=== PATIENT | female | born 1955 | race Caucasian/White ===

== ENCOUNTER 2021-06-27 19:07 | Inpatient (IN) | payer MEDICARE, OTHER ==
[~2021-06-27] VITALS: Ht 172.7 cm; Wt 61.7 kg
[2021-06-27 20:32] LABS: Basophils # (auto) 0.1 10 ^3/uL (0-0.2); Basophils % (auto) 0.9 % (0.0-2.0); Eosinophils # (auto) 0.3 10 ^3/uL (0-0.8); Eosinophils % (auto) 4.1 % (0.0-7.0); Hematocrit 36.5 % (36.0-46.0); Hemoglobin 12.6 g/dL (12.2-16.2); Lymphocytes # (auto) 1.2 10 ^3/uL (0.4-5.4); Lymphocytes % (auto) 17.7 % (10.0-50.0); Mean Corpuscular Hemoglobin 31.4 pg (28.0-32.0); Mean Corpuscular Hgb Conc. 34.6 g/dL (32.0-36.0); Mean Corpuscular Volume 90.6 fL (80.0-100.0); Monocytes # (auto) 0.7 10 ^3/uL (0-1.3); Monocytes % (auto) 10.5 % (0.0-12.0); Neutrophils # (auto) 4.7 10 ^3/uL (1.6-8.6); Neutrophils % (auto) 66.8 % (37.0-80.0); Red Blood Cells 4.03 10^6/uL (4.0-5.20); Red Cell Distribution Width 13.8 % (11.8-14.3)
[2021-06-27 21:00] LABS: Calcium 9.1 mg/dL (8.5-10.1)
[2021-06-27 21:02] LABS: BUN/Creatinine Ratio 9.8; Bilirubin, Total 0.5 mg/dL (0.2-1.0); Total Protein 5.5 g/dL (6.4-8.2)
[2021-06-27 21:53] LABS: Urine Bacteria NONE SEEN /hpf (None Seen); Urine Blood Negative /uL (Negative); Urine Specific Gravity 1.003 (1.001-1.035); Urine WBC <1 /hpf (0 - 5)
[2021-06-27] MEDS ORDERED: POTASSIUM CHL 20 Meq TABLET PO ONE (22:00)
[2021-06-27] MEDS ORDERED: LORazepam 2MG/ML-1ML VIAL IV ONE (22:30)
[2021-06-27] MEDS ORDERED: levETIRAcetam 500 MG/5ML INJ IV ONE (22:58)
[2021-06-28] MEDS ORDERED: ONDANSETRON HCL 4 MG/2 ML VIAL IV PRN (00:30)
[2021-06-28] MEDS ORDERED: LORazepam 2MG/ML-1ML VIAL IV PRN ×2 (00:30→10:30)
[2021-06-28] MEDS ORDERED: ACETAMINOPHEN 325 MG TAB PO PRN (00:30)
[2021-06-28] MEDS: POTASSIUM CHL 20MEQ/100ML 100 ML IV SCH ×3 (02:07→06:45)
[2021-06-28 04:51] LABS: Alcohol, Urine < 3.0 mg/dL (0-10); Amphetamine Screen, Urine NEGATIVE (NEGATIVE); Barbiturate Scree,Urine NEGATIVE (NEGATIVE); Benzodiazephine Screen, Urine POSITIVE (NEGATIVE); Cannabinoid Screen, Urine NEGATIVE (NEGATIVE); Cocaine Screen, Urine NEGATIVE (NEGATIVE); Opiate Scree,Urine NEGATIVE (NEGATIVE); Phencyclidine Screen, Urine NEGATIVE (NEGATIVE)
[2021-06-28 04:59] LABS: Basophils # (auto) 0.1 10 ^3/uL (0-0.2); Basophils % (auto) 0.7 % (0.0-2.0); Eosinophils # (auto) 0.2 10 ^3/uL (0-0.8); Hematocrit 35.5 % (36.0-46.0); Hemoglobin 12.4 g/dL (12.2-16.2); Lymphocytes # (auto) 1.1 10 ^3/uL (0.4-5.4); Lymphocytes % (auto) 11.6 % (10.0-50.0); Mean Corpuscular Hemoglobin 31.6 pg (28.0-32.0); Mean Corpuscular Hgb Conc. 34.8 g/dL (32.0-36.0); Mean Corpuscular Volume 90.9 fL (80.0-100.0); Monocytes # (auto) 0.8 10 ^3/uL (0-1.3); Monocytes % (auto) 8.4 % (0.0-12.0); Neutrophils # (auto) 7.2 10 ^3/uL (1.6-8.6); Neutrophils % (auto) 77.3 % (37.0-80.0); Red Blood Cells 3.91 10^6/uL (4.0-5.20); Red Cell Distribution Width 13.1 % (11.8-14.3); White Blood Cell 9.3 10^3/uL (4.4-10.8)
[2021-06-28 05:15] VITALS: BP 134/66
[2021-06-28 05:18] LABS: Calcium 8.9 mg/dL (8.5-10.1); Potassium 3.5 mmol/L (3.5-5.1)
[2021-06-28 05:24] LABS: BUN/Creatinine Ratio 5.4; Bilirubin, Total 0.6 mg/dL (0.2-1.0); Total Protein 5.4 g/dL (6.4-8.2)
[2021-06-28] MEDS ORDERED: ATOR40TA52 PO (06:34)
[2021-06-28] MEDS ORDERED: GABA300C10 PO (06:34)
[2021-06-28] MEDS ORDERED: METH750T22 PO (06:34)
[2021-06-28] MEDS ORDERED: ACET300T57 PO (06:34)
[2021-06-28] MEDS ORDERED: TRAZ100T3 PO (06:34)
[2021-06-28] MEDS ORDERED: DULO20CA PO (06:34)
[2021-06-28] MEDS ORDERED: CLOP75TA70 PO (06:34)
[2021-06-28] MEDS ORDERED: LISI2.5T47 PO (06:34)
[2021-06-28] MEDS ORDERED: ALPR1TAB7 PO (06:34)
[2021-06-28] MEDS ORDERED: SUCR1SUS16 PO (06:34)
[2021-06-28] MEDS ORDERED: ONDA-144 PO (06:34)
[2021-06-28] MEDS ORDERED: METO-158 PO (06:34)
[2021-06-28] MEDS ORDERED: MONT-8 PO (06:34)
[2021-06-28] MEDS ORDERED: EZET10TA22 PO (06:34)
[2021-06-28 09:00] VITALS: BP 123/73
[2021-06-28] MEDS ORDERED: ENOXAPARIN SOD 40 MG/0.4 ML SYRINGE SC SCH (10:00)
[2021-06-28] MEDS: FAMOTIDINE 20 MG TAB PO SCH (10:03)
[2021-06-28] MEDS: levETIRAcetam 500 MG TAB PO SCH ×2 (10:03→21:09)
[2021-06-28] MEDS ORDERED: ACETAMINOPHEN WITH CODEINE PO PRN (10:30)
[2021-06-28 11:32] LABS: Folate (Folic Acid) 15.78 ng/mL (5.38-24)
[2021-06-28 13:00] VITALS: BP 137/60
[2021-06-28] MEDS: SUCRALFATE 1 GM/10 ML ORAL SUSP PO SCH ×3 (13:08→21:07)
[2021-06-28] MEDS: MAGNESIUM SULFATE 1GM/100ML 100 ML IV SCH ×4 (13:08→15:00)
[2021-06-28] MEDS: ONDANSETRON ODT 4 MG TAB PO SCH ×3 (13:09→23:19)
[2021-06-28] MEDS: D5W/SOD CHL 0.45%/KCL 40MEQ 1,000 ML IV SCH ×2 (13:30→22:23)
[2021-06-28] MEDS: GABAPENTIN 300 MG CAP PO SCH ×2 (14:00→21:09)
[2021-06-28 15:31] LABS: Albumin 3.1 g/dL (3.4-5.0); Calcium 8.7 mg/dL (8.5-10.1)
[2021-06-28 15:36] LABS: BUN/Creatinine Ratio 5.4; Bilirubin, Total 0.8 mg/dL (0.2-1.0); Total Protein 5.7 g/dL (6.4-8.2)
[2021-06-28 15:41] LABS: Potassium 2.9 mmol/L (3.5-5.1)
[2021-06-28] MEDS: METOPROLOL TARTRATE 50 MG TAB PO SCH (17:00)
[2021-06-28] MEDS ORDERED: POTASSIUM CHL 20 Meq TABLET PO ONE (18:00)
[2021-06-28] MEDS: METHOCARBAMOL 500 MG TAB PO SCH (21:07)
[2021-06-28] MEDS: ATORVASTATIN 20 MG TAB PO SCH (21:08)
[2021-06-28] MEDS: DULoxetine HCL 30 MG CAP PO SCH (21:09)
[2021-06-28] MEDS: HYDROcodone-ACET 5/325MG TAB PO PRN (22:49)
[2021-06-29] MEDS ORDERED: TEMAZEPAM 15 MG CAP PO ONE (04:00)
[2021-06-29 05:00] LABS: Basophils # (auto) 0.1 10 ^3/uL (0-0.2); Basophils % (auto) 0.5 % (0.0-2.0); Eosinophils # (auto) 0.4 10 ^3/uL (0-0.8); Eosinophils % (auto) 3.4 % (0.0-7.0); Hematocrit 38.2 % (36.0-46.0); Hemoglobin 13.3 g/dL (12.2-16.2); Lymphocytes # (auto) 1.3 10 ^3/uL (0.4-5.4); Lymphocytes % (auto) 12.3 % (10.0-50.0); Mean Corpuscular Hemoglobin 32.1 pg (28.0-32.0); Mean Corpuscular Hgb Conc. 34.8 g/dL (32.0-36.0); Mean Corpuscular Volume 92.3 fL (80.0-100.0); Neutrophils # (auto) 8.1 10 ^3/uL (1.6-8.6); Neutrophils % (auto) 74.8 % (37.0-80.0); Red Blood Cells 4.13 10^6/uL (4.0-5.20); Red Cell Distribution Width 13.7 % (11.8-14.3); White Blood Cell 10.8 10^3/uL (4.4-10.8)
[2021-06-29 05:23] LABS: Potassium 4.4 mmol/L (3.5-5.1)
[2021-06-29 05:31] LABS: Albumin 3.2 g/dL (3.4-5.0); BUN/Creatinine Ratio 3.6; Bilirubin, Total 0.6 mg/dL (0.2-1.0); Calcium 8.4 mg/dL (8.5-10.1); Magnesium 2.5 mg/dL (1.6-2.6); Total Protein 5.9 g/dL (6.4-8.2)
[2021-06-29] MEDS: SUCRALFATE 1 GM/10 ML ORAL SUSP PO SCH ×4 (05:42→21:35)
[2021-06-29] MEDS: GABAPENTIN 300 MG CAP PO SCH ×3 (05:42→21:40)
[2021-06-29] MEDS: ONDANSETRON ODT 4 MG TAB PO SCH ×3 (05:43→18:27)
[2021-06-29 05:53] VITALS: BP 142/75
[2021-06-29] MEDS: METOPROLOL TARTRATE 50 MG TAB PO SCH ×2 (06:47→18:26)
[2021-06-29 08:06] LABS: RPR Non Reactive (Non Reactive)
[2021-06-29 08:56] VITALS: BP 127/64
[2021-06-29] MEDS: NEUTRA-PHOS TABLET PO SCH ×4 (09:00→21:54)
[2021-06-29] MEDS: FAMOTIDINE 20 MG TAB PO SCH (09:57)
[2021-06-29] MEDS: levETIRAcetam 500 MG TAB PO SCH ×2 (09:57→21:41)
[2021-06-29] MEDS: DULoxetine HCL 30 MG CAP PO SCH ×2 (09:57→21:40)
[2021-06-29] MEDS: METHOCARBAMOL 500 MG TAB PO SCH ×2 (09:57→21:36)
[2021-06-29] MEDS: D5W/SOD CHL 0.45%/KCL 40MEQ 1,000 ML IV SCH (09:57)
[2021-06-29] MEDS: LISINOPRIL 5 MG TAB PO SCH (09:58)
[2021-06-29] MEDS: MONTELUKAST SODIUM 10 MG TAB PO SCH (09:58)
[2021-06-29] MEDS ORDERED: POTASSIUM CHL 20 Meq TABLET PO SCH (10:00)
[2021-06-29] MEDS: HYDROcodone-ACET 5/325MG TAB PO PRN (10:00)
[2021-06-29] MEDS: EZETIMIBE 10 MG TABLETS PO SCH (10:00)
[2021-06-29 12:49] VITALS: BP 136/78
[2021-06-29] MEDS: ASPirin-EC 81 mg tab PO SCH (15:30)
[2021-06-29] MEDS: ALPRAZolam 0.5 MG TAB PO SCH (16:36)
[2021-06-29 17:00] VITALS: BP 157/77
[2021-06-29] MEDS: ATORVASTATIN 20 MG TAB PO SCH (21:41)
[2021-06-29 22:00] VITALS: BP 125/80
[2021-06-29] MEDS ORDERED: traZODone HCL 50 MG TAB PO SCH (22:00)
[2021-06-30] MEDS: ONDANSETRON ODT 4 MG TAB PO SCH ×3 (00:19→12:19)
[2021-06-30 05:00] VITALS: BP 104/65
[2021-06-30] MEDS: SUCRALFATE 1 GM/10 ML ORAL SUSP PO SCH ×2 (05:23→12:19)
[2021-06-30] MEDS: GABAPENTIN 300 MG CAP PO SCH ×2 (05:23→14:00)
[2021-06-30] MEDS: HYDROcodone-ACET 5/325MG TAB PO PRN (05:23)
[2021-06-30] MEDS: METOPROLOL TARTRATE 50 MG TAB PO SCH (06:26)
[2021-06-30 06:45] LABS: Calcium 8.5 mg/dL (8.5-10.1); Potassium 5.2 mmol/L (3.5-5.1)
[2021-06-30 06:49] LABS: Albumin 2.7 g/dL (3.4-5.0); BUN/Creatinine Ratio 5.6; Bilirubin, Total 0.4 mg/dL (0.2-1.0); Phosphorus 3.1 mg/dL (2.5-4.90); Total Protein 5.1 g/dL (6.4-8.2)
[2021-06-30 08:48] VITALS: BP 108/61
[2021-06-30] MEDS ORDERED: SODIUM CHLORIDE 0.9% 500 ML IV ONE (09:00)
[2021-06-30] MEDS: METHOCARBAMOL 500 MG TAB PO SCH (09:43)
[2021-06-30] MEDS: DULoxetine HCL 30 MG CAP PO SCH (09:43)
[2021-06-30] MEDS: LISINOPRIL 5 MG TAB PO SCH (09:48)
[2021-06-30] MEDS: FAMOTIDINE 20 MG TAB PO SCH (09:49)
[2021-06-30] MEDS: ALPRAZolam 0.5 MG TAB PO SCH (09:49)
[2021-06-30] MEDS: levETIRAcetam 500 MG TAB PO SCH (09:49)
[2021-06-30] MEDS: MONTELUKAST SODIUM 10 MG TAB PO SCH (09:49)
[2021-06-30] MEDS: ASPirin-EC 81 mg tab PO SCH (09:50)
[2021-06-30] MEDS: EZETIMIBE 10 MG TABLETS PO SCH (10:00)
[2021-06-30] MEDS ORDERED: KEP500T PO (11:00)
[2021-06-30 13:00] VITALS: BP 120/72
== END 2021-06-30 15:36 | disposition home or self-care (01) | DRG 101 ==
LOC: EDBD 19:07 → ER 19:11 → TELE 06-28 00:18 → TELE-CENTR 06-28 02:15
PROVIDERS: ADMIT Internal Medicine; ATTEND Hospitalist
DX: G40.409 Other generalized epilepsy and epileptic syndromes, not intractable, without status epilepticus (principal); F13.239 Sedative, hypnotic or anxiolytic dependence with withdrawal, unspecified; E87.6 Hypokalemia; E78.5 Hyperlipidemia, unspecified; E83.39 Other disorders of phosphorus metabolism; E87.5 Hyperkalemia; E83.42 Hypomagnesemia; F32.A Depression, unspecified; F41.9 Anxiety disorder, unspecified; I10 Essential (primary) hypertension; M41.9 Scoliosis, unspecified; E87.8 Other disorders of electrolyte and fluid balance, not elsewhere classified; Z20.822 Contact with and (suspected) exposure to COVID-19; G89.29 Other chronic pain; M54.9 Dorsalgia, unspecified; R19.7 Diarrhea, unspecified; Z86.73 Personal history of transient ischemic attack (TIA), and cerebral infarction without residual deficits; Z91.19 Patient's noncompliance with other medical treatment and regimen; Z88.1 Allergy status to other antibiotic agents; Z88.0 Allergy status to penicillin
CPT/HCPCS: 36415; 70450; 70545; 70551; 80053; 80307; 81001; 82746; 83735; 84100; 84132; 84425; 84443; 85025; 86592; 92610; 93306; 93886; 95819; 96365; 96375; 99291; G0378; J3480; J7060; Q0162

== ENCOUNTER 2023-04-07 13:16 | Inpatient (IN) | payer BC, MEDICARE ==
[~2023-04-07] VITALS: Ht 167.6 cm; Wt 60.9 kg
[~2023-04-07 13:16] MED LIST: ACET300T57 PO; ALPR1TAB7 PO; ATOR40TA52 PO; CLOP75TA70 PO; DULO20CA PO; EZET10TA22 PO; GABA-1250 PO; KEP500T PO; METH-1182 PO; METO-158 PO; MONT-8 PO; ONDA-144 PO; SUCR1SUS25 PO; TRAZ-228 PO
[2023-04-07] MEDS ORDERED: levETIRAcetam 1000 mg/100ml 100 ML IV ONE (13:30)
[2023-04-07 14:14] LABS: Basophils # (auto) 0 10 ^3/uL (0-0.2); Basophils % (auto) 0.4 % (0.0-2.0); Eosinophils # (auto) 0.1 10 ^3/uL (0-0.8); Hematocrit 39.8 % (36.0-46.0); Lymphocytes % (auto) 11.3 % (10.0-50.0); Mean Corpuscular Hemoglobin 30.7 pg (28.0-32.0); Mean Corpuscular Hgb Conc. 32.8 g/dL (32.0-36.0); Mean Corpuscular Volume 93.7 fL (80.0-100.0); Monocytes # (auto) 0.6 10 ^3/uL (0-1.3); Monocytes % (auto) 7.1 % (0.0-12.0); Neutrophils # (auto) 6.8 10 ^3/uL (1.6-8.6); Neutrophils % (auto) 80.2 % (37.0-80.0); Red Blood Cells 4.25 10^6/uL (4.0-5.20); Red Cell Distribution Width 12.8 % (11.8-14.3); White Blood Cell 8.4 10^3/uL (4.4-10.8)
[2023-04-07 14:33] LABS: Alanine Aminotransferase 14 U/L (7-40); Alkaline Phosphatase 60 U/L (46-116); Anion Gap 13 (5-15); Aspartate Aminotransferase 16 U/L (13-40); Bilirubin, Total 0.5 mg/dL (0.2-1.0); Calcium 9.6 mg/dL (8.5-10.1); Carbon Dioxide 19 mmol/L (20-30); Chloride 105 mmol/L (98-107); Glucose 157 mg/dL (74-106); Potassium 2.9 mmol/L (3.5-5.1); Sodium 137 mmol/L (136-145); Total Protein 6.3 g/dL (5.7-8.2)
[2023-04-07 14:40] VITALS: PULSE 74; RESP 15; O2SAT 96
[2023-04-07 14:55] LABS: BUN/Creatinine Ratio 7.5 (10.0-20.0); Blood Urea Nitrogen < 5 mg/dL (9-23)
[2023-04-07 16:05] LABS: Urine Bacteria NONE SEEN /hpf (None Seen); Urine Blood Negative /uL (Negative); Urine Clarity Clear (Clear); Urine Color Colorless (Yellow); Urine Hyaline Cast FEW /lpf (0 - 2); Urine Protein, UAD 1+ (Negative); Urine Specific Gravity 1.011 (1.001-1.035); Urine Urobilinogen Normal (Negative); Urine WBC 1 /hpf (0 - 5); Urine pH 6.5 (5.0-8.0)
[2023-04-07] MEDS ORDERED: POTASSIUM CHL 20MEQ/100ML 100 ML IV ONE (16:45)
[2023-04-07] MEDS ORDERED: POTASSIUM CHL 20 Meq TABLET PO ONE (16:45)
[2023-04-07 20:00] VITALS: O2SAT 97
[2023-04-07] MEDS ORDERED: ALPRAZolam 0.5 MG TAB PO ONE (21:45)
[2023-04-08] VITALS (7 sets, daily range): BP systolic 103–130; BP diastolic 76–87; PULSE 61–102; RESP 15–18; TEMP 97.4–98.2; O2SAT 94–99
[2023-04-08] MEDS ORDERED: LORazepam 2MG/ML-1ML VIAL IV PRN (01:00)
[2023-04-08] MEDS ORDERED: ACETAMINOPHEN 325 MG TAB PO PRN (02:00)
[2023-04-08] MEDS ORDERED: TEMAZEPAM 15 MG CAP PO PRN (02:00)
[2023-04-08] MEDS ORDERED: ONDANSETRON HCL 4 MG/2 ML VIAL IV PRN (02:00)
[2023-04-08 03:55] LABS: COVID19 ANTIGEN SOFIA FIA NEGATIVE (NEGATIVE)
[2023-04-08] MEDS: METOPROLOL SUCCINATE XL 50 MG TAB PO SCH (09:32)
[2023-04-08] MEDS: levETIRAcetam 500 MG TAB PO SCH ×2 (09:33→21:05)
[2023-04-08] MEDS: CLOPIDOGREL BISULFATE 75 MG TAB PO SCH (09:33)
[2023-04-08] MEDS: cloNIDine HCL 0.1 MG TAB PO SCH ×2 (09:33→21:05)
[2023-04-08] MEDS: ATORVASTATIN 20 MG TAB PO SCH (09:33)
[2023-04-08] MEDS ORDERED: ARIP5TAB36 PO (11:24)
[2023-04-08] MEDS ORDERED: SUCR1TAB22 OR (11:24)
[2023-04-08] MEDS ORDERED: TRAZ-228 PO (11:24)
[2023-04-08] MEDS ORDERED: ACETAMINOPHEN PO PRN ×2 (13:00→13:15)
[2023-04-08] MEDS ORDERED: CODEINE PO PRN ×2 (13:00→13:15)
[2023-04-08] MEDS: ALPRAZolam 0.5 MG TAB PO SCH ×2 (14:08→21:08)
[2023-04-08] MEDS ORDERED: METHOCARBAMOL 500 MG TAB PO SCH (14:19)
[2023-04-08 14:40] LABS: Chloride 105 mmol/L (98-107); Potassium 3.8 mmol/L (3.5-5.1); Sodium 137 mmol/L (136-145)
[2023-04-08 14:41] LABS: Anion Gap 13 (5-15); Calcium 10.2 mg/dL (8.7-10.4); Carbon Dioxide 19 mmol/L (20-30)
[2023-04-08 14:46] LABS: Blood Urea Nitrogen 7 mg/dL (9-23); Glucose 115 mg/dL (74-106)
[2023-04-08] MEDS: GABAPENTIN 300 MG CAP PO SCH ×2 (16:38→21:06)
[2023-04-08] MEDS: METHOCARBAMOL 500 MG TAB PO SCH (21:04)
[2023-04-08] MEDS: DULOXETINE HCL 20 MG PO SCH (21:47)
[2023-04-08] MEDS ORDERED: ARIPIPRAZOLE 2.5 MG PO SCH (22:00)
[2023-04-08] MEDS ORDERED: ALPRAZolam 0.5 MG TAB PO SCH (22:00)
[2023-04-09 04:54] VITALS: BP 86/51; PULSE 99; RESP 17; TEMP 97.3; O2SAT 96
[2023-04-09 05:35] LABS: Chloride 105 mmol/L (98-107); Potassium 3.8 mmol/L (3.5-5.1); Sodium 136 mmol/L (136-145)
[2023-04-09 05:36] LABS: Anion Gap 9 (5-15); Calcium 9.8 mg/dL (8.7-10.4); Carbon Dioxide 22 mmol/L (20-30)
[2023-04-09 05:41] LABS: BUN/Creatinine Ratio 11.7 (10.0-20.0); Blood Urea Nitrogen 11 mg/dL (9-23); Glucose 105 mg/dL (74-106)
[2023-04-09] MEDS: GABAPENTIN 300 MG CAP PO SCH (05:52)
[2023-04-09 08:00] VITALS: PULSE 81; RESP 15; O2SAT 99
[2023-04-09 09:00] VITALS: BP 99/69; PULSE 108; RESP 16; TEMP 97.8; O2SAT 98
[2023-04-09] MEDS: DULOXETINE HCL 20 MG PO SCH (10:00)
[2023-04-09] MEDS: cloNIDine HCL 0.1 MG TAB PO SCH (10:00)
[2023-04-09] MEDS: ATORVASTATIN 20 MG TAB PO SCH (10:18)
[2023-04-09] MEDS: METOPROLOL SUCCINATE XL 50 MG TAB PO SCH (10:19)
[2023-04-09] MEDS: levETIRAcetam 500 MG TAB PO SCH (10:19)
[2023-04-09] MEDS: CLOPIDOGREL BISULFATE 75 MG TAB PO SCH (10:19)
[2023-04-09] MEDS: METHOCARBAMOL 500 MG TAB PO SCH (10:20)
[2023-04-09] MEDS: ALPRAZolam 0.5 MG TAB PO SCH (10:21)
[2023-04-09 11:38] VITALS: BP 99/69; PULSE 108; RESP 16; TEMP 36.6; O2SAT 98
[2023-04-09] MEDS ORDERED: LEVE100012 PO (12:22)
[2023-04-09] MEDS ORDERED: LEVE500T40 PO (12:22)
== END 2023-04-09 12:47 | disposition home or self-care (01) | DRG 101 ==
LOC: EDBD 13:16 → ER 13:16 → OVERFLOW 04-08 01:58 → CENTRAL 04-08 06:19
PROVIDERS: ADMIT Family Medicine; ATTEND Family Medicine
DX: G40.201 Localization-related (focal) (partial) symptomatic epilepsy and epileptic syndromes with complex partial seizures, not intractable, with status epilepticus (principal); E87.6 Hypokalemia; G40.401 Other generalized epilepsy and epileptic syndromes, not intractable, with status epilepticus; I10 Essential (primary) hypertension; M41.9 Scoliosis, unspecified; G89.29 Other chronic pain; M54.50 Low back pain, unspecified; Z20.822 Contact with and (suspected) exposure to COVID-19; Z79.899 Other long term (current) drug therapy; Z82.3 Family history of stroke; Z82.49 Family history of ischemic heart disease and other diseases of the circulatory system; Z86.73 Personal history of transient ischemic attack (TIA), and cerebral infarction without residual deficits; Z88.0 Allergy status to penicillin; Z88.1 Allergy status to other antibiotic agents; Z90.710 Acquired absence of both cervix and uterus; Z91.83 Wandering in diseases classified elsewhere; Z79.02 Long term (current) use of antithrombotics/antiplatelets
CPT/HCPCS: 36415; 70450; 80048; 80053; 81001; 85025; 87426; 96361; 96365; 97110; 97116; 97163; G0378; J3480

== ENCOUNTER 2023-09-21 21:05 | Inpatient (IN) | payer BC, MEDICARE ==
[~2023-09-21] VITALS: Ht 167.6 cm; Wt 60.2 kg
[~2023-09-21 21:05] MED LIST changes: +DOXY100C4 PO; -EZET10TA22 PO; +LEVE100012 PO; +LEVE500T40 PO; +SUCR1TAB31 OR
[2023-09-21 21:30] VITALS: PULSE 34; RESP 14; O2SAT 96
[2023-09-21 21:44] LABS: Basophils # (auto) 0 10 ^3/uL (0-0.2); Basophils % (auto) 0.5 % (0.0-2.0); Eosinophils # (auto) 0.2 10 ^3/uL (0-0.8); Eosinophils % (auto) 1.8 % (0.0-7.0); Hemoglobin 14.3 g/dL (12.2-16.2); Lymphocytes # (auto) 1.7 10 ^3/uL (0.4-5.4); Lymphocytes % (auto) 20.7 % (10.0-50.0); Mean Corpuscular Hemoglobin 31.4 pg (28.0-32.0); Mean Corpuscular Hgb Conc. 33.2 g/dL (32.0-36.0); Mean Corpuscular Volume 94.5 fL (80.0-100.0); Monocytes # (auto) 0.4 10 ^3/uL (0-1.3); Monocytes % (auto) 5.2 % (0.0-12.0); Neutrophils # (auto) 5.9 10 ^3/uL (1.6-8.6); Neutrophils % (auto) 71.8 % (37.0-80.0); Nucleated Red Blood Cells % 0.1 %; Red Blood Cells 4.56 10^6/uL (4.0-5.20); Red Cell Distribution Width 14.2 % (11.8-14.3); White Blood Cell 8.3 10^3/uL (4.4-10.8)
[2023-09-21 22:02] LABS: Alanine Aminotransferase 14 U/L (7-40); Alkaline Phosphatase 73 U/L (46-116); Anion Gap 4 (5-15); Aspartate Aminotransferase 23 U/L (13-40); BUN/Creatinine Ratio 13.5 (10.0-20.0); Bilirubin, Total 0.7 mg/dL (0.2-1.0); Blood Alcohol 6.1 mg/dL (<10); Blood Urea Nitrogen 10 mg/dL (9-23); Calcium 10.8 mg/dL (8.5-10.1); Carbon Dioxide 25 mmol/L (20-30); Chloride 114 mmol/L (98-107); Glucose 92 mg/dL (74-106); Potassium 4.5 mmol/L (3.5-5.1); Sodium 143 mmol/L (136-145); Total Protein 6.6 g/dL (5.7-8.2)
[2023-09-21 22:03] LABS: INR 1.05 (0.9-1.15); Partial Thromboplastin Time 27.7 SEC (24.5-34.5); Prothrombin Time 11.1 sec (9.3-11.8)
[2023-09-21 22:29] LABS: Albumin 4.2 g/dL (3.2-4.8)
[2023-09-21] MEDS: levETIRAcetam 1000 mg/100ml 100 ML IV ONE (22:30)
[2023-09-21] MEDS: ONDANSETRON HCL 4 MG/2 ML VIAL IV ONE (22:47)
[2023-09-21] MEDS: hydrALAZINE HCL 20 MG/ML VL IV ONE (22:48)
[2023-09-21] MEDS: HYDROmorphone HCL 2 MG/ML VL/or syr IV ONE (22:49)
[2023-09-22] VITALS (9 sets, daily range): BP systolic 136–154; BP diastolic 54–77; PULSE 34–60; RESP 16–96; TEMP 97.3–98.9; O2SAT 95–100
[2023-09-22 00:07] LABS: Urine Bacteria None Seen /hpf (None Seen)
[2023-09-22 00:24] LABS: Urine Blood Negative /uL (Negative); Urine Clarity Clear (Clear); Urine Color Light-Yellow (Yellow); Urine Hyaline Cast FEW /lpf (0 - 2); Urine Protein, UAD Negative (Negative); Urine Urobilinogen Normal (Negative); Urine WBC <1 /hpf (0 - 5)
[2023-09-22 00:31] LABS: Amphetamine Screen, Urine Neg (NEGATIVE); Barbiturate Scree,Urine Neg (NEGATIVE); Benzodiazephine Screen, Urine Pos (NEGATIVE); Cannabinoid Screen, Urine Neg (NEGATIVE); Cocaine Screen, Urine Neg (NEGATIVE); Opiate Scree,Urine Pos (NEGATIVE); Phencyclidine Screen, Urine Neg (NEGATIVE)
[2023-09-22] MEDS ORDERED: ACETAMINOPHEN 325 MG TAB PO PRN (04:45)
[2023-09-22 05:34] LABS: Alanine Aminotransferase 11 U/L (7-40); Albumin 3.8 g/dL (3.2-4.8); Alkaline Phosphatase 68 U/L (46-116); Anion Gap 4 (5-15); Aspartate Aminotransferase 22 U/L (13-40); BUN/Creatinine Ratio 14.9 (10.0-20.0); Bilirubin, Total 0.6 mg/dL (0.2-1.0); Blood Urea Nitrogen 10 mg/dL (9-23); Calcium 10.4 mg/dL (8.5-10.1); Carbon Dioxide 27 mmol/L (20-30); Chloride 114 mmol/L (98-107); Glucose 91 mg/dL (74-106); Potassium 4.2 mmol/L (3.5-5.1); Sodium 145 mmol/L (136-145)
[2023-09-22 05:35] LABS: Basophils # (auto) 0 10 ^3/uL (0-0.2); Basophils % (auto) 0.4 % (0.0-2.0); Eosinophils # (auto) 0.1 10 ^3/uL (0-0.8); Eosinophils % (auto) 0.5 % (0.0-7.0); Hematocrit 41.2 % (36.0-46.0); Hemoglobin 13.8 g/dL (12.2-16.2); Lymphocytes # (auto) 0.8 10 ^3/uL (0.4-5.4); Lymphocytes % (auto) 7.8 % (10.0-50.0); Mean Corpuscular Hemoglobin 31.4 pg (28.0-32.0); Mean Corpuscular Hgb Conc. 33.5 g/dL (32.0-36.0); Mean Corpuscular Volume 93.5 fL (80.0-100.0); Monocytes # (auto) 0.5 10 ^3/uL (0-1.3); Monocytes % (auto) 4.4 % (0.0-12.0); Neutrophils % (auto) 86.9 % (37.0-80.0); Red Cell Distribution Width 14.1 % (11.8-14.3); White Blood Cell 10.3 10^3/uL (4.4-10.8)
[2023-09-22] MEDS ORDERED: NITROGLYCERIN 0.4 MG SL TAB SL PRN (06:00)
[2023-09-22] MEDS ORDERED: MORPHINE SULFATE INJ 2 MG/ml SYRG IV PRN (06:00)
[2023-09-22] MEDS: SODIUM CHLOR 0.9% PF (SALINE LOCK) 10ML VIAL/SYR IV SCH (06:05)
[2023-09-22] MEDS: HYDROcodone-ACET 5/325MG TAB PO PRN (10:03)
[2023-09-22] MEDS: FAMOTIDINE (10MG/ML) 2ML VL IV SCH (10:03)
[2023-09-22] MEDS: levETIRAcetam 1000 mg/100ml 100 ML IV SCH (10:25)
[2023-09-22] MEDS: SODIUM CHLORIDE 0.9% 1,000 ML IV SCH (14:07)
[2023-09-22] MEDS ORDERED: ATOR-507 PO (14:24)
[2023-09-22] MEDS ORDERED: HYDR-4069 PO (14:24)
[2023-09-22] MEDS ORDERED: MOME1AER3 INH (14:24)
[2023-09-22] MEDS ORDERED: ARIP2TAB PO (14:24)
[2023-09-22] MEDS ORDERED: EZET10TA22 PO (14:24)
[2023-09-22] MEDS ORDERED: CLON0.1T PO (14:24)
[2023-09-22] MEDS ORDERED: BACL20TA PO (14:24)
[2023-09-22] MEDS: IOHEXOL 350 MG/ML 100ML IJ ONE (17:24)
[2023-09-22] MEDS: ONDANSETRON HCL 4 MG/2 ML VIAL IV PRN (17:28)
[2023-09-22] MEDS: BACLOFEN 10 MG PO SCH (17:31)
[2023-09-22] MEDS: ATORVASTATIN 20 MG TAB PO SCH (21:38)
[2023-09-22] MEDS ORDERED: PATIENTS OWN MEDICATION (Baclofen 10 MG) PO SCH (22:00)
[2023-09-22] MEDS ORDERED: LORazepam 2MG/ML-1ML VIAL IV PRN (23:45)
[2023-09-23] VITALS (8 sets, daily range): BP systolic 128–175; BP diastolic 64–85; PULSE 58–87; RESP 15–18; TEMP 97.6–98.6; O2SAT 96–98
[2023-09-23 00:02] LABS: Triglycerides 115 mg/dL (< 150)
[2023-09-23 00:03] LABS: LDL Cholesterol 56 mg/dL (< 100)
[2023-09-23 00:04] LABS: Cholesterol 123 mg/dL (< 200); HDL Cholesterol 43 mg/dL (40-59)
[2023-09-23 06:57] LABS: Basophils # (auto) 0 10 ^3/uL (0-0.2); Basophils % (auto) 0.5 % (0.0-2.0); Eosinophils # (auto) 0.1 10 ^3/uL (0-0.8); Eosinophils % (auto) 0.8 % (0.0-7.0); Hematocrit 36.2 % (36.0-46.0); Hemoglobin 12.1 g/dL (12.2-16.2); Lymphocytes # (auto) 1.2 10 ^3/uL (0.4-5.4); Lymphocytes % (auto) 16.3 % (10.0-50.0); Mean Corpuscular Hemoglobin 30.8 pg (28.0-32.0); Mean Corpuscular Hgb Conc. 33.5 g/dL (32.0-36.0); Mean Corpuscular Volume 91.9 fL (80.0-100.0); Monocytes # (auto) 0.5 10 ^3/uL (0-1.3); Monocytes % (auto) 6.9 % (0.0-12.0); Neutrophils # (auto) 5.5 10 ^3/uL (1.6-8.6); Neutrophils % (auto) 75.5 % (37.0-80.0); Red Blood Cells 3.94 10^6/uL (4.0-5.20); Red Cell Distribution Width 13.7 % (11.8-14.3); White Blood Cell 7.3 10^3/uL (4.4-10.8)
[2023-09-23 07:34] LABS: Alanine Aminotransferase 10 U/L (7-40); Alkaline Phosphatase 59 U/L (46-116); Anion Gap 5 (5-15); Aspartate Aminotransferase 21 U/L (13-40); BUN/Creatinine Ratio 11.5 (10.0-20.0); Blood Urea Nitrogen 7 mg/dL (9-23); Calcium 9.7 mg/dL (8.7-10.4); Carbon Dioxide 25 mmol/L (20-30); Chloride 111 mmol/L (98-107); Glucose 87 mg/dL (74-106); Potassium 3.6 mmol/L (3.5-5.1); Sodium 141 mmol/L (136-145)
[2023-09-23 07:35] LABS: Albumin 3.5 g/dL (3.2-4.8); Bilirubin, Total 0.8 mg/dL (0.2-1.0); Total Protein 5.6 g/dL (5.7-8.2)
[2023-09-23] MEDS: levETIRAcetam 500 MG TAB PO SCH (09:07)
[2023-09-23] MEDS: MORPHINE SULFATE INJ 2 MG/ml SYRG IV PRN (14:28)
[2023-09-23] MEDS: DOCUSATE SOD 100 MG CAP PO PRN (15:43)
[2023-09-23] MEDS: hydrALAZINE HCL 20 MG/ML VL IV PRN (18:17)
[2023-09-24 05:00] VITALS: BP 161/69; PULSE 76; RESP 19; TEMP 98.3; O2SAT 98
[2023-09-24 08:00] VITALS: PULSE 69
[2023-09-24] MEDS: LORazepam 2MG/ML-1ML VIAL IV ONE (09:32)
[2023-09-24] MEDS: LORazepam 2MG/ML-1ML VIAL ONE (09:32)
[2023-09-24 09:37] LABS: Basophils # (auto) 0 10 ^3/uL (0-0.2); Basophils % (auto) 0.2 % (0.0-2.0); Eosinophils # (auto) 0 10 ^3/uL (0-0.8); Eosinophils % (auto) 0.4 % (0.0-7.0); Hemoglobin 13.1 g/dL (12.2-16.2); Lymphocytes # (auto) 1.9 10 ^3/uL (0.4-5.4); Lymphocytes % (auto) 16.2 % (10.0-50.0); Mean Corpuscular Hemoglobin 30.9 pg (28.0-32.0); Mean Corpuscular Hgb Conc. 32.7 g/dL (32.0-36.0); Mean Corpuscular Volume 94.3 fL (80.0-100.0); Monocytes % (auto) 8.4 % (0.0-12.0); Neutrophils # (auto) 8.6 10 ^3/uL (1.6-8.6); Neutrophils % (auto) 74.8 % (37.0-80.0); Red Blood Cells 4.24 10^6/uL (4.0-5.20); Red Cell Distribution Width 14.4 % (11.8-14.3); White Blood Cell 11.5 10^3/uL (4.4-10.8)
[2023-09-24 10:06] LABS: Alanine Aminotransferase 10 U/L (7-40); Albumin 3.9 g/dL (3.2-4.8); Alkaline Phosphatase 65 U/L (46-116); Anion Gap 12 (5-15); Aspartate Aminotransferase 21 U/L (13-40); BUN/Creatinine Ratio 7.9 (10.0-20.0); Bilirubin, Total 0.9 mg/dL (0.2-1.0); Blood Urea Nitrogen 5 mg/dL (9-23); Carbon Dioxide 17 mmol/L (20-30); Chloride 111 mmol/L (98-107); Glucose 143 mg/dL (74-106); Potassium 3.2 mmol/L (3.5-5.1); Sodium 140 mmol/L (136-145); Total Protein 6.2 g/dL (5.7-8.2)
[2023-09-24] MEDS: BACLOFEN 10 MG TAB PO SCH (14:56)
[2023-09-24 19:40] VITALS: BP 157/75; PULSE 81; RESP 17; TEMP 98.6; O2SAT 94
[2023-09-24 20:00] VITALS: PULSE 81; PULSE 94; RESP 17
[2023-09-24 21:32] VITALS: BP 143/91; PULSE 63; RESP 19; TEMP 97.6; O2SAT 95
[2023-09-24] MEDS: GABAPENTIN 300 MG CAP PO SCH (21:39)
[2023-09-24] MEDS ORDERED: METOPROLOL TARTRATE 50 MG TAB PO SCH (22:00)
[2023-09-25] VITALS (8 sets, daily range): BP systolic 100–135; BP diastolic 50–76; PULSE 70–103; RESP 16–19; TEMP 97.5–99.1; O2SAT 94–100
[2023-09-25] MEDS: ALPRAZolam 0.5 MG TAB PO PRN (02:40)
[2023-09-25] MEDS: METOPROLOL SUCCINATE XL 50 MG TAB PO SCH (09:18)
[2023-09-25] MEDS: IOHEXOL 350 MG/ML 100ML IJ ONE (09:27)
[2023-09-25] MEDS ORDERED: METOPROLOL SUCCINATE XL 50 MG TAB PO SCH (10:00)
[2023-09-25] MEDS ORDERED: METOPROLOL TARTRATE 50 MG TAB PO SCH (10:00)
[2023-09-26] VITALS (7 sets, daily range): BP systolic 95–144; BP diastolic 45–93; PULSE 51–76; RESP 16–17; TEMP 36.8; O2SAT 95–96
[2023-09-26] MEDS: METOPROLOL SUCCINATE XL 50 MG TAB PO SCH (10:29)
[2023-09-26] MEDS ORDERED: DULO30CA PO (11:56)
[2023-09-26] MEDS ORDERED: METO-289 PO (11:56)
[2023-09-26] MEDS ORDERED: LISI2.5T47 PO (11:58)
== END 2023-09-26 18:30 | disposition home or self-care (01) | DRG 65 ==
LOC: EDBD 21:05 → ER 21:05 → TELE 09-22 05:52 → TELE-WESTW 09-22 08:55
PROVIDERS: ADMIT Nurse Practitioner Family; ATTEND Family Medicine
PROC: 05HC33Z Insertion of Infusion Device into Left Basilic Vein, Percutaneous Approach (ICD-10-PCS; principal; 2023-09-22)
PROC: B54NZZA Ultrasonography of Left Upper Extremity Veins, Guidance (ICD-10-PCS; 2023-09-22)
DX: I63.9 Cerebral infarction, unspecified (principal); I16.1 Hypertensive emergency; I47.10 Supraventricular tachycardia, unspecified; E78.00 Pure hypercholesterolemia, unspecified; F41.9 Anxiety disorder, unspecified; G43.909 Migraine, unspecified, not intractable, without status migrainosus; I65.21 Occlusion and stenosis of right carotid artery; M41.9 Scoliosis, unspecified; S02.2XXA Fracture of nasal bones, initial encounter for closed fracture; M54.9 Dorsalgia, unspecified; R00.1 Bradycardia, unspecified; I34.1 Nonrheumatic mitral (valve) prolapse; I10 Essential (primary) hypertension; G40.909 Epilepsy, unspecified, not intractable, without status epilepticus; G89.29 Other chronic pain; W18.39XA Other fall on same level, initial encounter; M54.50 Low back pain, unspecified; Z88.1 Allergy status to other antibiotic agents; Z88.0 Allergy status to penicillin; Z79.02 Long term (current) use of antithrombotics/antiplatelets; Z79.899 Other long term (current) drug therapy; Z79.1 Long term (current) use of non-steroidal anti-inflammatories (NSAID); Z90.710 Acquired absence of both cervix and uterus; Z82.3 Family history of stroke; Z90.49 Acquired absence of other specified parts of digestive tract; Z82.49 Family history of ischemic heart disease and other diseases of the circulatory system; Y93.89 Activity, other specified; Y92.89 Other specified places as the place of occurrence of the external cause; Y99.8 Other external cause status
CPT/HCPCS: 36415; 70450; 70498; 71275; 80053; 80061; 80307; 80320; 81001; 84484; 85025; 85379; 85610; 85730; 93005; 93306; 93886; 93970; 95819; 97163; 99291; G0378; J2405; J3490

== ENCOUNTER 2023-11-28 21:33 | Emergency (ER) | payer BC, MEDICARE ==
[~2023-11-28] VITALS: Ht 170.2 cm; Wt 54.5 kg
[~2023-11-28 21:33] MED LIST changes: -ACET300T57 PO; +ARIP2TAB PO; +ATOR-507 PO; -ATOR40TA52 PO; +BACL20TA PO; +CLON0.1T PO; -DULO20CA PO; +DULO30CA PO; +EZET10TA22 PO; +HYDR-4069 PO; -KEP500T PO; -LEVE500T40 PO; +LISI2.5T47 PO; -METH-1182 PO; -METO-158 PO; +METO-289 PO; +MOME1AER3 INH; -MONT-8 PO; -ONDA-144 PO; -SUCR1SUS25 PO; -SUCR1TAB31 OR
[2023-11-28 21:48] VITALS: BP 145/89; PULSE 70; RESP 16; O2SAT 99
== END 2023-11-29 01:46 | disposition left against medical advice (07) ==
LOC: ER 21:33 → EDBD 21:33 → ER 11-29 01:46
DX: G89.29 Other chronic pain (principal); M54.9 Dorsalgia, unspecified; Z53.21 Procedure and treatment not carried out due to patient leaving prior to being seen by health care provider

== ENCOUNTER 2024-09-24 06:58 | Inpatient (IN) | payer MEDICARE, OTHER ==
[~2024-09-24] VITALS: Ht 167.6 cm; Wt 56.0 kg
[2024-09-24] MEDS ORDERED: diazePAM 5 MG TAB PO ONE (07:45)
--- NOTE | 2024-09-24 07:56 | ED.PDOC ---
History of Present Illness HPI Comments 69 year old female with a Hx of CVA, HTN, Seizures, Anxiety, and Scoliosis was BIB friend to the ED for the c/c of Lower Back pain and left knee pain. Pt states that her lower back pain and knee pain has been onset for the past few days, and notes she has not slept for the past 3x days. Pt notes on taking Golden 7.5 for pain. No other associated symptoms, modifiers, recent injuries or sick contacts present at this time. Chief Complaint: Back Pain Time Seen by MD: 07:42 Primary Care Provider: ALEXI Reviewed Notes: Nurses Notes, Medications, Allergies Allergies: Coded Allergies: Cephalexin (Verified Allergy, Unknown, 06/29/21) Penicillins (Verified Allergy, Unknown, 06/27/21) Home Meds Active Scripts Levetiracetam (Keppra) 1,000 Mg Tab, 1 TAB PO BID, #60 TAB 5 Refills Prov:KANDACE WILHELM MD 04/09/23 Reported Medications Doxycycline Hyclate (Doxycycline Hyclate) 100 Mg Cap, 1 CAP PO BID for 14 Days, #28 09/26/23 Lisinopril (Lisinopril) 2.5 Mg Tab, 1 TAB PO DAILY 09/26/23 Metoprolol Succinate (Metoprolol Succinate Er) 50 Mg Tab, 1 TAB PO DAILY 09/26/23 Duloxetine Hcl (Cymbalta) 30 Mg Cap, 1 TAB PO DAILY 09/26/23 Hydrocodone-Acetaminophen (Hydrocodone/Acetaminophen 7.5-325 mg) 1 Tab Tab, 1 TAB PO QID for SCOLIOSIS 09/22/23 Baclofen (Baclofen) 20 Mg Tab, 10 MG PO TID for SCOLIOSIS, TAB 09/22/23 Clonidine Hydrochloride (Clonidine Hcl) 0.1 Mg Tab, 0.1 MG PO BID for BLOOD PRESSURE, TAB 09/22/23 Aripiprazole (Abilify) 2 Mg Tab, 0.5 MG PO QPM for DEPRESSION, TAB 09/22/23 Mometasone Furoate-Formoterol (Dulera) 1 Aer Aer, 2 PUFF INH BID for ALLERGIES, #13 GRAMS 5 Refills 09/22/23 Ezetimibe (Zetia) 10 Mg Tab, 1 TAB PO DAILY for CHOLESTEROL, #30 TAB 5 Refills 09/22/23 Atorvastatin Calcium (Lipitor) 40 Mg Tab, 1 TAB PO QPM for CHOLESTEROL, #90 TAB 1 Refill 09/22/23 Trazodone Hcl (Trazodone Hcl) 100 Mg Tab, 1 TAB PO BID PRN for FOR INSOMNIA 04/08/23 Gabapentin (Gabapentin) 300 Mg Cap, 300 MG PO TID for MUSCLE PAIN for 30 Days, MG 06/28/21 Clopidogrel Bisulfate (CLOPIDOGREL) 75 Mg Tab, 75 MG PO DAILY for STROKE/BLOOD THINNER for 30 Days, MG 06/28/21 Alprazolam (Alprazolam) 1 Mg Tab, 1 TAB PO BID for ANXIETY, #60 TAB 06/28/21 Information Source: Patient, Friend Mode of Arrival: Ambulatory Severity: Moderate Timing: Days Duration: Since onset, Days Prehospital treatment: None Past Medical History PAST MEDICAL HISTORY: CVA, HTN, Seizures Surgical History: Appendectomy, Hysterectomy OIL AND GAS PRINCIPAL History: Denies all OIL AND GAS PRINCIPAL Hx Family History Family History: Reviewed,noncontributory to illness Social History Smoker: Non-Smoker Alcohol: Denies ETOH Use Drugs: Denies Drug Use Lives In: Home Constitutional: denies: chills, diaphoresis, fatigue, fever, malaise, sweats, w eakness, others EENTM: denies: blurred vision, double vision, ear bleeding, ear discharge, ear drainage, ear pain, ear ringing, eye pain, eye redness, hearing loss, mouth pain, mouth swelling, nasal discharge, nose bleeding, nose congestion, nose pain, photophobia, tearing, throat pain, throat swelling, voice changes, others Respiratory: denies: cough, hemoptysis, orthopnea, SOB at rest, shortness of breath, SOB with excertion, stridor, wheezing, others Cardiovascular: denies: chest pain, dizzy spells, diaphoresis, Dyspnea on exertion, edema, irregular heart beat, left arm pain, lightheadedness, palpitations, PND, syncope, others Gastrointestinal: denies: abdomen distended, abdominal pain, blood streaked bowels, constipated, diarrhea, dysphagia, difficulty swallowing, hematemesis, melena, nausea, poor appetite, poor fluid intake, rectal bleeding, rectal pain, vomiting, others Genitourinary: denies: abnormal vagina bleeding, burning, dyspareunia, dysuria, flank pain, frequency, hematuria, incontinence, pain, , vagina di scharge, urgency, others Neurological: denies: dizziness, fainting, headache, left sided numbness, left sided weakness, numbness, paresthesia, pre-existing deficit, right sided numbness, right sided weakness, seizure, speech problems, tingling, tremors, weakness, others Musculoskeletal: reports: back pain; denies: gout, joint pain, joint swelling, muscle pain, muscle stiffness, neck pain, others Integumetry: denies: bruises, change in color, change in hair/nails, dryness, laceration, lesions, lumps, rash, wounds, others Allergic/Immunocompromised: denies: Difficulty Healing, Frequent Infections, Hives, Itching, others Hematologic/Lymphatic: denies: anemia, blood clots, easy bleeding, easy bruising, swollen glands, others Endocrine: denies: excessive hunger, excessive sweating, excessive thirst, excessive urination, flushing, intolerance to cold, intolerance to heat, unexplained weight gain, unexplained weight loss, others Psychiatric: denies: anxiety, bipolar disorder, depression, hopeless, panic disorder, schizophrenia, sleepless, suicidal, others All Other Systems: Reviewed and Negative Physical Exam General Appearance: Moderate Distress, Normal, Thin, Other (chronic ill appearing) HEENT: Normal ENT Inspection, Pharynx Normal, TMs Normal Neck: Full Range of Motion, Non-Tender, Normal, Normal Inspection Respiratory: Chest Non-Tender, Lungs Clear, No Accessory Muscle Use, No Respiratory Distress, Normal Breath Sounds Cardiovascular: No Edema, No JVD, No Murmur, Normal Peripheral Pulses, Regular Rate/Rhythm Breast Exam: Deferred Gastrointestinal: Non Tender, No Pulsatile Mass, Normal Bowel Sounds, Soft Genitalia: Deferred Pelvic: Deferred Rectal: Deferred Extremities: No calf tenderness, Normal capillary refill, Normal inspection, Normal range of motion, Non-tender, No pedal edema Musculoskeletal : Location: Bilateral Extremity Location: Back (Tenderness to midline spine) Apperance: Normal Neurologic: Alert, No Motor Deficits, Normal Mood Cerebellar Function: Normal Reflexes: Normal Skin: Dry, Normal Color, Warm Lymphatic: No Adenopathy Was a procedure done? Was a procedure done?: No Differential Dx Considerations may include: Lumbosacral strain, lumbar fracture X-Ray, Labs, Meds, VS Vital Signs Date Time Temp Pulse Resp B/P (MAP) Pulse Ox O2 Delivery O2 Flow Rate FiO2 09/24/24 10:30 92 18 138/88 09/24/24 10:25 97.9 80 20 133/77 (95) 97 97.9 09/24/24 08:22 91 16 99 Room Air 09/24/24 08:22 97.9 91 16 118/73 (88) 99 97.9 09/24/24 07:28 98.5 69 16 162/77 (105) 97 98.5 Lab Test 09/24/24 11:01 Range/Units White Blood Count 7.6 4.4-10.8 10^3/uL Red Blood Count 4.59 4.0-5.20 10^6/uL Hemoglobin 14.5 12.2-16.2 g/dL Hematocrit 42.9 36.0-46.0 % Mean Corpuscular Volume 93.5 80.0-100.0 fL Mean Corpuscular Hemoglobin 31.6 28.0-32.0 pg Mean Corpuscular Hemoglobin Concent 33.8 32.0-36.0 g/dL Red Cell Distribution Width 14.1 11.8-14.3 % Platelet Count 239 140-450 10^3/uL Mean Platelet Volume 6.9 6.9-10.8 fL Neutrophils (%) (Auto) 76.9 37.0-80.0 % Lymphocytes (%) (Auto) 15.6 10.0-50.0 % Monocytes (%) (Auto) 6.6 0.0-12.0 % Eosinophils (%) (Auto) 0.5 0.0-7.0 % Basophils (%) (Auto) 0.4 0.0-2.0 % Neutrophils # (Auto) 5.8 1.6-8.6 10 ^3/uL Lymphocytes # (Auto) 1.2 0.4-5.4 10 ^3/uL Monocytes # (Auto) 0.5 0-1.3 10 ^3/uL Eosinophils # (Auto) 0 0-0.8 10 ^3/uL Basophils # (Auto) 0 0-0.2 10 ^3/uL Nucleated Red Blood Cells 0.1 % Sodium Level 142 136-145 mmol/L Potassium Level 3.8 3.5-5.1 mmol/L Chloride Level 108 H 98-107 mmol/L Carbon Dioxide Level 23 20-31 mmol/L Anion Gap 11 5-15 Blood Urea Nitrogen 9 9-23 mg/dL Creatinine 0.89 0.550-1.02 mg/dL Glomerular Filtration Rate Calc 69 >90 mL/min BUN/Creatinine Ratio 10.1 10.0-20.0 Serum Glucose 100 74-106 mg/dL Calcium Level 11.0 H 8.7-10.4 mg/dL Current Medications Medications (Trade) Dose Ordered Sig/Buster Route Start Time Stop Time Status Last Admin Ketorolac Tromethamine (Toradol Injection) 15 mg ONCE ONCE IM 09/24/24 07:45 09/24/24 07:46 DC 09/24/24 09:17 Diazepam (Valium Tablet) 5 mg ONCE ONCE PO 09/24/24 09:30 09/24/24 09:31 DC 09/24/24 09:25 Sodium Chloride 1,000 ml @ 1,000 mls/hr Q1H ONCE IV 09/24/24 10:30 09/24/24 11:29 DC 09/24/24 11:01 Morphine Sulfate 4 mg ONCE ONCE IV 09/24/24 10:30 09/24/24 10:31 DC 09/24/24 10:30 Time of 1ST Reevaluation: 08:12 Reevaluation 1ST: Unchanged Patient Education/Counseling: Diagnosis, Treatment Family Education/Counseling: Diagnosis, Treatment SEPSIS Sepsis Screen Date sepsis recognized/suspect: Sep 24, 2024 Time Sepsis recognized/suspect: 709 Recent Procedure: No On Antibiotic Therapy: No Respiratory Rate >20: No Heart Rate >90: No Temp<36 C (96.8 F) or >38.3 C: No SBP <90 or MAP <65 mmHG: No New Acute Mental Status Change: No Is the patient on CPAP, BIPAP,: No Orders/Vitals/Labs Physician Orders Lumbar Spine 3 View (09/24/24 10:23) Urinalysis (09/24/24 10:23) Vital Signs Date Time Temp Pulse Resp B/P (MAP) Pulse Ox O2 Delivery O2 Flow Rate FiO2 09/24/24 10:30 92 18 138/88 09/24/24 10:25 97.9 80 20 133/77 (95) 97 97.9 09/24/24 08:22 91 16 99 Room Air 09/24/24 08:22 97.9 91 16 118/73 (88) 99 97.9 09/24/24 07:28 98.5 69 16 162/77 (105) 97 98.5 Laboratory Tests Test 09/24/24 11:01 White Blood Count 7.6 10^3/uL (4.4-10.8) Medications Medications Dose Ordered Sig/Buster Route Start Time Stop Time Status Last Admin Dose Admin Diazepam 5 mg ONCE ONCE PO 09/24/24 09:30 09/24/24 09:31 DC 09/24/24 09:25 Ketorolac Tromethamine 15 mg ONCE ONCE IM 09/24/24 07:45 09/24/24 07:46 DC 09/24/24 09:17 Morphine Sulfate 4 mg ONCE ONCE IV 09/24/24 10:30 09/24/24 10:31 DC 09/24/24 10:30 Sodium Chloride 1,000 ml @ 1,000 mls/hr Q1H ONCE IV 09/24/24 10:30 09/24/24 11:29 DC 09/24/24 11:01 Departure 1 Departure Time of Disposition: 11:41 (Patient with intractable lower back pain and difficulty ambulating. We will admit patient for further workup and expert consultation) Impression: Primary Impression: Lumbosacral strain Qualified Codes: S39.012A - Strain of muscle, fascia and tendon of lower back, initial encounter Additional Impression: Intractable back pain Disposition: ADMITTED INPATIENT Admit to: Med Surg Condition: Serious Critical Care Note Critical Care Time?: Yes Critical care comment: Intractable back pain Authorized and Performed by: Cesia Ryan MD Total critical care time: Approximately 39 minutes Due to a high probability of clinically significant, life threatening deterioration, the patient required my highest level of preparedness to intervene emergently and I personally spent this critical care time directly and personally managing the patient. This critical care time included obtaining a history; examining the patient; pulse oximetry; ordering and review of studies; arranging urgent treatment with development of a management plan; evaluation of patient's response to treatment; frequent reassessment; and, discussions with other providers. This critical care time was performed to assess and manage the high probability of imminent, life-threatening deterioration that could result in multi-organ failure. It was exclusive of separately billable procedures and treating other patients and teaching time. Please see my other sections and the rest of the note for further information on patient assessment and treatment. Stability Stability form required: No Heart Score Heart Score: Heart Score Response (Comments) Value History N/A 0 EKG N/A 0 Age N/A 0 Risk Factors N/A 0 Troponin N/A 0 Total 0 I personally scribed for CESIA RYAN MD ([email or web address]) on 09/24/24 at 07:56. Electronically submitted by Coy Sarabia ([email or web address]). I personally scribed for CESIA RYAN MD ([email or web address]) on 09/24/24 at 07:57. Electronically submitted by Coy Sarabia ([email or web address]). CESIA RYAN MD Sep 24, 2024 07:56
[2024-09-24] MEDS: KETOROLAC TROMETH 60MG/2ML VIAL IM ONE (09:17)
[2024-09-24] MEDS: diazePAM 5 MG TAB PO ONE (09:25)
[2024-09-24] MEDS: MORPHINE SULFATE 4 MG/ML SYR/VIAL IV ONE (10:30)
[2024-09-24] MEDS: ONDANSETRON HCL 4 MG/2 ML VIAL IV ONE (10:30)
[2024-09-24] MEDS: SODIUM CHLORIDE 0.9% 1,000 ML IV ONE (11:01)
[2024-09-24 11:11] LABS: Basophils # (auto) 0 10 ^3/uL (0-0.2); Basophils % (auto) 0.4 % (0.0-2.0); Eosinophils # (auto) 0 10 ^3/uL (0-0.8); Eosinophils % (auto) 0.5 % (0.0-7.0); Hematocrit 42.9 % (36.0-46.0); Hemoglobin 14.5 g/dL (12.2-16.2); Lymphocytes # (auto) 1.2 10 ^3/uL (0.4-5.4); Lymphocytes % (auto) 15.6 % (10.0-50.0); Mean Corpuscular Hemoglobin 31.6 pg (28.0-32.0); Mean Corpuscular Hgb Conc. 33.8 g/dL (32.0-36.0); Mean Corpuscular Volume 93.5 fL (80.0-100.0); Monocytes # (auto) 0.5 10 ^3/uL (0-1.3); Monocytes % (auto) 6.6 % (0.0-12.0); Neutrophils # (auto) 5.8 10 ^3/uL (1.6-8.6); Neutrophils % (auto) 76.9 % (37.0-80.0); Nucleated Red Blood Cells % 0.1 %; Platelet Count (auto) 239 10^3/uL (140-450); Red Blood Cells 4.59 10^6/uL (4.0-5.20); Red Cell Distribution Width 14.1 % (11.8-14.3); White Blood Cell 7.6 10^3/uL (4.4-10.8)
--- NOTE | 2024-09-24 11:16 | DVH ---
INDICATION: intractable back pain COMPARISON: None TECHNIQUE: 3 views of the lumbar spine were obtained. FINDINGS: There is significant scoliosis which limits evaluation for acute fracture. There is left lateral lis thesis at L2-3 and L3-4. Can not assess for vertebral body fracture due to suboptimal visualization o f the bones. IMPRESSION: 1. Limited study due to severe scoliosis and bone demineralization. Recommend CT if there is concern for fracture.
[2024-09-24 11:20] LABS: Potassium 3.8 mmol/L (3.5-5.1); Sodium 142 mmol/L (136-145)
[2024-09-24 11:21] LABS: Anion Gap 11 (5-15); Carbon Dioxide 23 mmol/L (20-31); Chloride 108 mmol/L (98-107)
[2024-09-24 11:26] LABS: BUN/Creatinine Ratio 10.1 (10.0-20.0); Blood Urea Nitrogen 9 mg/dL (9-23); Glucose 100 mg/dL (74-106)
[2024-09-24] MEDS ORDERED: ACETAMINOPHEN 325 MG TAB PO PRN (14:15)
[2024-09-24] MEDS ORDERED: MORPHINE SULFATE INJ 2 MG/ml SYRG IV PRN ×2 (14:15→15:00)
[2024-09-24] MEDS ORDERED: ONDANSETRON HCL 4 MG/2 ML VIAL IV PRN (14:15)
--- NOTE | 2024-09-24 14:58 | DVHHP2 ---
History of Present Illness Reason for Visit: Lumbosacral strain History of Present Illness The patient is a 69 year female with past medical history of CVA, seizures, hypertension, anxiety, and hyperlipidemia who presented to [facility] ED with complaint of lower back pain. Patient reports she has been experiencing lower back pain, radiating to the left knee, unable to sleep for the past 3 days, getting worse today that prompted this visit. Patient was seen and evaluated in the ED, laboratory data shows WBC 7.6, platelets 239, sodium 142, potassium 3.8, BUN 9, creatinine 0.89, glucose 100, calcium 11.0, blood pressure 140/95, heart rate 74, temperature 97.7 F, O2 saturation 99% on room air. Lumbar spine x-ray limited study due to severe scoliosis and bone demineralization. Patient was given morphine sulfate 4 mg IV x1, please see medication orders section in the computer. On my assessment, patient denied chest pain, no headache, no dizziness, no diaphoresis, no shortness of breaths, no nausea, no vomiting, no fever, no chills. Patient was admitted for further evaluation and medical management. Past Medical History CVA, HTN, Seizures, HLD, Anxiety, Past Surgical History Appendectomy, Hysterectomy Family History Reviewed, noncontributory to the management of this case. Past Social History The patient lives at home, denies smoking, alcohol or illicit drugs abuse. Review of Systems Constitutional: Yes: Weakness; No: Fever, Chills, Sweats, Malaise, Other Eyes: No: Pain, Vision change, Conjunctivae inflammation, Eyelid inflammation, Other, Redness ENT: No: Ear pain, Ear discharge, Nose pain, Nose discharge, Nose congestion, Mouth pain, Mouth swelling, Throat pain, Throat swelling, Other Respiratory: No: Cough, Dry, Shortness of breath, SOB with excertion, Wheezing, Hemoptysis, Pleuritic Pain, Sputum, Wheezing, Other Cardiovascular: No: Chest Pain, Palpitations, Orthopnea, Paroxysmal Noc. Dyspnea, Edema, Lt Headedness, Other Gastrointestinal: No: Nausea, Vomiting, Abdominal Pain, Diarrhea, Constipation, Melena, Hematochezia, Other Genitourinary: No Dysuria, No Frequency, No Incontinence, No Hematuria, No Retention, No Other Musculoskeletal: other (Left knee pain), back pain; No: neck pain, shoulder pain, arm pain, hand pain, leg pain, foot pain Skin: No: Rash, Lesions, Jaundice, Bruising, Other Neurological: No: Weakness, Numbness, Incoordination, Change in speech, Confusion, Seizures, Other Allergies: Coded Allergies: Cephalexin (Verified Allergy, Unknown, 06/29/21) Penicillins (Verified Allergy, Unknown, 06/27/21) Medications Current Medications Medications Dose Ordered Sig/Buster Route Start Time Stop Time Status Last Admin Dose Admin Aspirin 81 mg DAILY PO 09/25/24 10:00 Atorvastatin Calcium 40 mg HS PO 09/24/24 22:00 Levetiracetam 100 ml @ 400 mls/hr BID IV 09/24/24 22:00 Metoprolol Tartrate 25 mg BID PO 09/24/24 22:00 Hydralazine HCl 10 mg Q6HP PRN IV 09/24/24 14:15 Alprazolam 0.5 mg Q8HPRN PRN PO 09/24/24 14:15 Duloxetine HCl 30 mg DAILY PO 09/25/24 10:00 Gabapentin 300 mg TID PO 09/24/24 22:00 Sodium Chloride 10 ml Q8HR IV 09/24/24 22:00 Acetaminophen/ Hydrocodone Bitart 1 tab Q4HP PRN PO 09/24/24 14:15 Ondansetron HCl 4 mg Q4HP PRN IV 09/24/24 14:15 Docusate Sodium 100 mg BIDPRN PRN PO 09/24/24 14:15 Acetaminophen 650 mg Q6HP PRN PO 09/24/24 14:15 Morphine Sulfate 2 mg Q4HPRN PRN IV 09/24/24 14:15 Exam Vital Signs Vital Signs Date Time Temp Pulse Resp B/P (MAP) Pulse Ox O2 Delivery O2 Flow Rate FiO2 09/24/24 12:48 97.7 73 16 140/95 (110) 100 97.7 09/24/24 08:22 Room Air General Appearance: Alert, Oriented X3, Cooperative, No acute distress HEENT: Atraumatic, PERRLA, EOMI, Mucous membr. moist/pink Respiratory: Clear to auscultation, Normal air movement Cardiovascular: Regular rate, Normal S1, Normal S2, No murmurs Abdominal: Normal bowel sounds, Soft, No tenderness, No hepatospenomegaly, No masses Extremities: No clubbing, No cyanosis, No edema, Normal pulses, Other (Lower back pain) Skin: No rashes, No breakdown, No significant lesion Neuro: Normal speech, Normal tone, Sensation intact, Cranial nerves 3-12 NL, Reflexes 2+, Other (Generalized weakness) Psych/Mental Status: Mental status NL, Mood NL Labs/Xrays Labs Test 09/24/24 11:01 Range/Units White Blood Count 7.6 4.4-10.8 10^3/uL Red Blood Count 4.59 4.0-5.20 10^6/uL Hemoglobin 14.5 12.2-16.2 g/dL Hematocrit 42.9 36.0-46.0 % Mean Corpuscular Volume 93.5 80.0-100.0 fL Mean Corpuscular Hemoglobin 31.6 28.0-32.0 pg Mean Corpuscular Hemoglobin Concent 33.8 32.0-36.0 g/dL Red Cell Distribution Width 14.1 11.8-14.3 % Platelet Count 239 140-450 10^3/uL Mean Platelet Volume 6.9 6.9-10.8 fL Neutrophils (%) (Auto) 76.9 37.0-80.0 % Lymphocytes (%) (Auto) 15.6 10.0-50.0 % Monocytes (%) (Auto) 6.6 0.0-12.0 % Eosinophils (%) (Auto) 0.5 0.0-7.0 % Basophils (%) (Auto) 0.4 0.0-2.0 % Neutrophils # (Auto) 5.8 1.6-8.6 10 ^3/uL Lymphocytes # (Auto) 1.2 0.4-5.4 10 ^3/uL Monocytes # (Auto) 0.5 0-1.3 10 ^3/uL Eosinophils # (Auto) 0 0-0.8 10 ^3/uL Basophils # (Auto) 0 0-0.2 10 ^3/uL Nucleated Red Blood Cells 0.1 % Sodium Level 142 136-145 mmol/L Potassium Level 3.8 3.5-5.1 mmol/L Chloride Level 108 H 98-107 mmol/L Carbon Dioxide Level 23 20-31 mmol/L Anion Gap 11 5-15 Blood Urea Nitrogen 9 9-23 mg/dL Creatinine 0.89 0.550-1.02 mg/dL Glomerular Filtration Rate Calc 69 >90 mL/min BUN/Creatinine Ratio 10.1 10.0-20.0 Serum Glucose 100 74-106 mg/dL Calcium Level 11.0 H 8.7-10.4 mg/dL PATIENT: PAIGE WAY ACCT: [id number] UNIT: [id number] : 1955 LOC: ER ROOM / BED: / AGE / SEX: 69 / F ADM STATUS: REG ER SERVICE 1023 ORDERING PHYSICIAN: CESIA TRENT MD PROCEDURE(s): LUMB2 - LUMBAR SPINE 3 VIEW REASON: intractable back pain ORDER NUMBER(s): [id number], ACCESSION NUMBER(s): [id number] INDICATION: intractable back pain COMPARISON: None TECHNIQUE: 3 views of the lumbar spine were obtained. FINDINGS: There is significant scoliosis which limits evaluation for acute fracture. There is left lateral listhesis at L2-3 and L3-4. Can not assess for vertebral body fracture due to suboptimal visualization of the bones. IMPRESSION: 1. Limited study due to severe scoliosis and bone demineralization. Recommend CT if there is concern for fracture. Assessment/Plan Assessment/Plan Lumbosacral strain Intractable back pain Strain of muscle, fascia and tendon of lower back, initial encounter Plan 1. Admit to med surge unit 2. Breathing treatment 3. Pain control management 4. Management of fluids and electrolytes 5. Consultation for hospitalist 6. Diagnostic tests lumbar spine x-ray 7. DVT prophylaxis on SCDs 8. Repeat labs CBC, CMP in a.m. 9. Continue with current medical management 10. Treatment plan discussed with patient and RN. Patient verbalized understanding. Plan discussed with: Patient, Other (RN) My Orders Orders - CELESTINE BELL DNP Procedure Category Date Status Time Consistent DIET 09/24/24 Transmitted Carb(Ccho)Diabetes Dinner Aspirin Tablet PHA 09/25/24 In Process 10:00 Atorvastatin (Lipitor) PHA 09/24/24 In Process 22:00 Levetiracetam 1000 PHA 09/24/24 In Process Mg/100ml (Levetiracet 22:00 Metoprolol Tartrate PHA 09/24/24 In Process Tablet (Lopressor Ta 22:00 Hydralazine Injection PHA 09/24/24 In Process (Apresoline Inject 14:15 Alprazolam Tablet PHA 09/24/24 In Process (Xanax Tablet) 14:15 Duloxetine Hcl PHA 09/25/24 In Process Capsule (Cymbalta 10:00 Gabapentin Capsule PHA 09/24/24 In Process (Neurontin Capsule) 22:00 Allergies TISH 09/24/24 In Process 14:05 Code Status CODE 09/24/24 Transmitted 14:05 Sodium Chloride Lock PHA 09/24/24 In Process (Saline Lock Ns) 22:00 Oxygen Per Hour RT 09/24/24 Transmitted 14:05 Hydrocodone-Acet PHA 09/24/24 In Process 5/325mg Tab ([place] 14:15 Ondansetron Hcl PHA 09/24/24 In Process (Zofran) 14:15 Docusate Sodium PHA 09/24/24 In Process Capsule (Colace 14:15 Fall Risk Precautions TISH 09/24/[address] 14:05 Complete Blood Count LAB 09/25/24 Verified 04:00 Comprehensive LAB 09/25/24 Verified Metabolic Panel 04:00 Cardiac DIET 09/24/24 Transmitted Diet-2gna,Lofat,Lochol Dinner Condition: Serious TISH 09/24/24 In Process 14:05 Acetaminophen Tablet PHA 09/24/24 In Process (Tylenol Tablet) 14:15 Bedrest With Bathroom TISH 09/24/24 In Process Privileg 14:05 Morphine Sulfate PHA 09/24/24 In Process Injection 14:15 Sequential TISH 09/24/24 In Process Compression Device Admit ADMIT 09/24/24 Verified 14:57 Nitroglycerin PHA 09/24/24 Verified Sublingual (Ntrostat 15:00 Morphine Sulfate PHA 09/24/24 Verified Injection 15:00 Notify Md Of Changes TISH 09/24/24 Verified From Base 14:57 Emergency Dysrhythmia TISH 09/24/24 Verified Protocol 14:57 Rhythm Strips Once TISH 09/24/24 Verified Every Shift 14:57 Oxygen By Nasal RT 09/24/24 Verified Cannula 14:57 Problem List: (1) Lumbosacral strain (2) Intractable back pain (3) Strain of muscle, fascia and tendon of lower back, initial encounter Date of Service: Sep 24, 2024 Billing Provider: CELESTINE BELL DNP Common Visit Codes: [id number] INP/OBS CARE (HIGH) CELESTINE BELL DNP Sep 24, 2024 14:58
[2024-09-24] MEDS ORDERED: NITROGLYCERIN 0.4 MG SL TAB SL PRN (15:00)
[2024-09-24 17:05] VITALS: RESP 20
[2024-09-24 17:15] VITALS: BP 168/71; PULSE 83; RESP 20; TEMP 99.7; O2SAT 94
[2024-09-24 17:18] VITALS: TEMP 99.7
[2024-09-24] MEDS: ALPRAZolam 0.5 MG TAB PO PRN (17:27)
[2024-09-24 18:25] VITALS: BP 159/95; PULSE 96
[2024-09-24] MEDS: HYDROcodone-ACET 10/325MG TAB PO PRN (18:29)
[2024-09-24 21:00] VITALS: BP 162/93; PULSE 106; RESP 18; TEMP 97.5; O2SAT 96
[2024-09-24] MEDS: ATORVASTATIN 20 MG TAB PO SCH (21:47)
[2024-09-24] MEDS: MELATONIN 5 MG TAB PO ONE (21:48)
[2024-09-24] MEDS: HYDROcodone-ACET 5/325MG TAB PO PRN (21:48)
[2024-09-24] MEDS: GABAPENTIN 300 MG CAP PO SCH (21:48)
[2024-09-24] MEDS: METOPROLOL TARTRATE 25 MG TAB PO SCH (21:50)
[2024-09-24] MEDS: SODIUM CHLOR 0.9% PF (SALINE LOCK) 10ML VIAL/SYR IV SCH (21:50)
[2024-09-24] MEDS: levETIRAcetam 1000 mg/100ml 100 ML IV SCH (23:20)
[2024-09-25] VITALS (9 sets, daily range): BP systolic 136–165; BP diastolic 70–90; PULSE 52–78; RESP 14–20; TEMP 97.3–97.8; O2SAT 92–97
[2024-09-25 05:40] LABS: Basophils # (auto) 0 10 ^3/uL (0-0.2); Basophils % (auto) 0.7 % (0.0-2.0); Eosinophils # (auto) 0.1 10 ^3/uL (0-0.8); Eosinophils % (auto) 1.3 % (0.0-7.0); Hematocrit 37.2 % (36.0-46.0); Hemoglobin 12.6 g/dL (12.2-16.2); Lymphocytes # (auto) 1.4 10 ^3/uL (0.4-5.4); Mean Corpuscular Hemoglobin 31.9 pg (28.0-32.0); Mean Corpuscular Hgb Conc. 33.8 g/dL (32.0-36.0); Mean Corpuscular Volume 94.4 fL (80.0-100.0); Monocytes # (auto) 0.5 10 ^3/uL (0-1.3); Monocytes % (auto) 8.7 % (0.0-12.0); Neutrophils % (auto) 66.3 % (37.0-80.0); Nucleated Red Blood Cells % 0.1 %; Platelet Count (auto) 196 10^3/uL (140-450); Red Blood Cells 3.94 10^6/uL (4.0-5.20)
[2024-09-25 05:57] LABS: Alanine Aminotransferase 13 U/L (7-40); Albumin 3.8 g/dL (3.2-4.8); Alkaline Phosphatase 51 U/L (46-116); Anion Gap 7 (5-15); Aspartate Aminotransferase 34 U/L (<34); BUN/Creatinine Ratio 14.3 (10.0-20.0); Blood Urea Nitrogen 11 mg/dL (9-23); Calcium 9.1 mg/dL (8.7-10.4); Carbon Dioxide 25 mmol/L (20-31); Glucose 84 mg/dL (74-106); Potassium 3.7 mmol/L (3.5-5.1); Sodium 143 mmol/L (136-145); Total Protein 5.7 g/dL (5.7-8.2)
[2024-09-25 05:58] LABS: Bilirubin, Total 1.1 mg/dL (0.2-1.0); Chloride 111 mmol/L (98-107)
--- NOTE | 2024-09-25 06:51 | DVHINCON2 ---
Date of service: Sep 25, 2024 History of Present Illness HPI Patient is a 69-year-old female who presented with anxiety and low back pain. Her anxiety was more than usual and could not sleep for few prior to presentation. Low back pain was also more than usual and was accompanied with left knee pain. Patient is known to our practice from outside and before. Patient herself as test follow-up/consult. Denies any chest pain/shortness of breath/palpitation/loss of consciousness. Home Meds Active Scripts Levetiracetam (Keppra) 1,000 Mg Tab, 1 TAB PO BID, #60 TAB 5 Refills Prov:KANDACE WILHELM MD 04/09/23 Reported Medications Doxycycline Hyclate (Doxycycline Hyclate) 100 Mg Cap, 1 CAP PO BID for 14 Days, #28 09/26/23 Lisinopril (Lisinopril) 2.5 Mg Tab, 1 TAB PO DAILY 09/26/23 Metoprolol Succinate (Metoprolol Succinate Er) 50 Mg Tab, 1 TAB PO DAILY 09/26/23 Duloxetine Hcl (Cymbalta) 30 Mg Cap, 1 TAB PO DAILY 09/26/23 Hydrocodone-Acetaminophen (Hydrocodone/Acetaminophen 7.5-325 mg) 1 Tab Tab, 1 TAB PO QID for SCOLIOSIS 09/22/23 Baclofen (Baclofen) 20 Mg Tab, 10 MG PO TID for SCOLIOSIS, TAB 09/22/23 Clonidine Hydrochloride (Clonidine Hcl) 0.1 Mg Tab, 0.1 MG PO BID for BLOOD PRESSURE, TAB 09/22/23 Aripiprazole (Abilify) 2 Mg Tab, 0.5 MG PO QPM for DEPRESSION, TAB 09/22/23 Ezetimibe (Zetia) 10 Mg Tab, 1 TAB PO DAILY for CHOLESTEROL, #30 TAB 5 Refills 09/22/23 Atorvastatin Calcium (Lipitor) 40 Mg Tab, 1 TAB PO QPM for CHOLESTEROL, #90 TAB 1 Refill 09/22/23 Trazodone Hcl (Trazodone Hcl) 100 Mg Tab, 1 TAB PO BID PRN for FOR INSOMNIA 04/08/23 Gabapentin (Gabapentin) 300 Mg Cap, 300 MG PO TID for MUSCLE PAIN for 30 Days, MG 06/28/21 Clopidogrel Bisulfate (CLOPIDOGREL) 75 Mg Tab, 75 MG PO DAILY for STROKE/BLOOD THINNER for 30 Days, MG 06/28/21 Alprazolam (Alprazolam) 1 Mg Tab, 1 TAB PO BID for ANXIETY, #60 TAB 06/28/21 Past Medical History Patient Family History: Cerebrovascular accident (CVA) G8 MOTHER Smoker: No Hx (Negative) Review of Systems All Other Systems 14 point review of system was performed. Relevant findings as per above and as per HPI. Otherwise negative H&P Exam Vital Signs Vital Signs Date Time Temp Pulse Resp B/P (MAP) Pulse Ox O2 Delivery O2 Flow Rate FiO2 09/25/24 05:00 97.4 53 17 136/70 (92) 97 97.4 09/24/24 17:05 Room Air* 0 21 General Appeara: Well developed Head Exam: Normal inspection Eye Exam: bilateral eye PERRL Pulmonary/Respiratory: Normal inspection, Lungs clear Cardiovascular/Chest: Normal inspection Neuro/Mental St: Alert, Oriented Eye contact/ Speech: Cooperative Labs/Xrays Labs Test 09/25/24 05:00 Range/Units White Blood Count 6.0 4.4-10.8 10^3/uL Red Blood Count 3.94 L 4.0-5.20 10^6/uL Hemoglobin 12.6 12.2-16.2 g/dL Hematocrit 37.2 # 36.0-46.0 % Mean Corpuscular Volume 94.4 80.0-100.0 fL Mean Corpuscular Hemoglobin 31.9 28.0-32.0 pg Mean Corpuscular Hemoglobin Concent 33.8 32.0-36.0 g/dL Red Cell Distribution Width 14.0 11.8-14.3 % Platelet Count 196 140-450 10^3/uL Mean Platelet Volume 7.5 6.9-10.8 fL Neutrophils (%) (Auto) 66.3 37.0-80.0 % Lymphocytes (%) (Auto) 23.0 10.0-50.0 % Monocytes (%) (Auto) 8.7 0.0-12.0 % Eosinophils (%) (Auto) 1.3 0.0-7.0 % Basophils (%) (Auto) 0.7 0.0-2.0 % Neutrophils # (Auto) 4.0 1.6-8.6 10 ^3/uL Lymphocytes # (Auto) 1.4 0.4-5.4 10 ^3/uL Monocytes # (Auto) 0.5 0-1.3 10 ^3/uL Eosinophils # (Auto) 0.1 0-0.8 10 ^3/uL Basophils # (Auto) 0 0-0.2 10 ^3/uL Nucleated Red Blood Cells 0.1 % Sodium Level 143 136-145 mmol/L Potassium Level 3.7 3.5-5.1 mmol/L Chloride Level 111 H 98-107 mmol/L Carbon Dioxide Level 25 20-31 mmol/L Anion Gap 7 5-15 Blood Urea Nitrogen 11 9-23 mg/dL Creatinine 0.77 0.550-1.02 mg/dL Glomerular Filtration Rate Calc 82 >90 mL/min BUN/Creatinine Ratio 14.3 10.0-20.0 Serum Glucose 84 74-106 mg/dL Calcium Level 9.1 8.7-10.4 mg/dL Total Bilirubin 1.1 H 0.2-1.0 mg/dL Aspartate Amino Transferase (AST) 34 <34 U/L Alanine Aminotransferase (ALT) 13 7-40 U/L Alkaline Phosphatase 51 46-116 U/L Total Protein 5.7 5.7-8.2 g/dL Albumin 3.8 3.2-4.8 g/dL Assessment/Plan Plan Patient is a 69-year-old female who presented with anxiety and low back pain. Her anxiety was more than usual and could not sleep for few prior to presentation. Low back pain was also more than usual and was accompanied with left knee pain. Patient is known to our practice from outside and before. Patient herself as test follow-up/consult. Denies any chest pain/shortness of breath/palpitation/loss of consciousness. Frail lady, not in acute distress, no JVD. No carotid bruit. Lungs are clear to auscultation. No using accessory muscles of breathing. Cardiac: Regular, bradycardic, no thrill. No gallop. Abdomen is soft. There is no hepatomegaly. There is no mass. Extremities do not reveal edema. Dorsalis pedis is 2+ bilateral Past medical history includes hypertension, seizure disorder, old history of CVA, SVT (history of), osteoarthritis, scoliosis, radiculopathy, migraine, hold history of appendectomy and hysterectomy. Echocardiogram of July 09, 2021 revealed normal ejection fraction, mild concentric left ventricle hypertrophy, minimal MVP, trace MR/TR and aortic root of 3.5 cm Echocardiogram of September 22, 2023 revealed mild concentric left ventricular hypertrophy, ejection fraction of 60-65%, aortic root at 3.7 cm and ascending aorta 3.9 cm. Creatinine: 0.89-0.77 Potassium: 3.8-3.7 Lumbar x-ray revealed: 1. Limited study due to severe scoliosis and bone demineralization. Recommend CT if there is concern for fracture. Patient is a 68-year-old female who presented with increased anxiety and low back pain. There was some knee discomfort also. Presentation is not considered cardiac catheterization this point. Anxiety disorder Old history of CVA Seizure disorder Cardiac suggestion for management: Managed on telemetry Follow-up electrolytes and kidney function tests and correct abnormalities Cardiac-arrieta, the patient can be followed as outpatient Further evaluation and management depends on the above and clinical course A total of 65 minutes was spent reviewing the patient record, examining the patient, making a diagnostic and therapeutic plan, discussing this plan with medical personnel, following up on diagnostic studies and following the patient for clinical stability excluding any and all procedures. At least 50% of this time was spent in direct, [id number] contact. Thank you for allowing me to participate in this patient's care. Further recommendations will depend on patient's clinical course. Please do not hesitate to contact me if you have any questions or concerns. This medical document was created using electronic medical record system with [employer] computerized dictation system. Although this document has been carefully reviewed, there may still be some phonetic and typographical errors. These areas are purely typographical due to the imperfection of the software programs, and do not reflect any compromise in the patient's medical care. Plan discussed with: Patient, Other (nurse) DIMAS ST MD Sep 25, 2024 06:51
[2024-09-25] MEDS ORDERED: MIDAZOLAM HCL 5 MG/ML-1ML VIAL ONE (08:31)
[2024-09-25] MEDS ORDERED: diphenhdrAMINE HCL 50 MG/1 ML VL ONE (08:31)
[2024-09-25] MEDS ORDERED: fentaNYL CITRATE 100 MCG/2 ML VL ONE (08:32)
[2024-09-25] MEDS: ASPirin 81 mg TAB PO SCH (09:01)
[2024-09-25] MEDS: DULoxetine HCL 30 MG CAP PO SCH (09:02)
--- NOTE | 2024-09-25 13:32 | DVH ---
EXAM: CT LS SPINE WO CONTRAST HISTORY: stenosis with lower ext. Radiculopathy COMPARISON: CT LS SPINE WO CONTRAST on DOS: 09/21/23 CTDIvol 12.49 mGy, DLP 460.62 mGy*cm. TECHNIQUE: Multiple axial CT images of the spine were obtained using bone algorithm. Axial and so l reformatting was done. Bone and soft tissue windows were reviewed. FINDINGS: Rotatory levoscoliosis. Lumbar vertebrae normal in height. Diffuse disc space narrowing. At T12-L1 no narrowing of the central canal and neural foramina At L1-2 no narrowing of the central canal and neural foramina At L2-3 no narrowing of the central canal and neural foramina At L3-4 narrowing of the right neural foramen by right lateral disc protrusion with possible effaceme nt of the exiting right-sided nerve root. At L4-5 at L4-5 no narrowing of the central canal and neural foramina At L5-S1 narrowing of the right neural foramen by osteophytes. IMPRESSION: 1. There is a marked rotatory levoscoliosis present with its apex at L3. 2. At L3-4 there is a right lateral disc protrusion with possible effacement of the exiting right-nathalia ed nerve root in conjunction with facet joint hypertrophy and shortened pedicles. 3. At L5-S1 there is narrowing of the right neural foramen by osteophytes with possible effacement of the exiting right-sided nerve root
--- NOTE | 2024-09-25 13:34 | DVHPN2 ---
Subjective Continues to have lower extremity pain, more so noted in the left leg Reviewed: Care Plan, H&P, Labs, Medications Changes from previous H/P or p: No Changes General: Per HPI Eyes: No Pain, No Vision change, No Conjunctivae inflammation, No Eyelid inflammation, No Other, No Redness ENT: No Ear pain, No Ear discharge, No Nose pain, No Nose discharge, No Nose congestion, No Mouth pain, No Mouth swelling, No Throat pain, No Throat swelling, No Other Cardiovascular: No Chest Pain, No Palpitations, No Orthopnea, No Paroxysmal Noc. Dyspnea, No Edema, No Lt Headedness, No Other Respiratory: No Cough, No Dry, No Shortness of breath, No SOB with excertion, No Wheezing, No Hemoptysis, No Pleuritic Pain, No Sputum, No Other Gastrointestinal: No Nausea, No Vomiting, No Abdominal Pain, No Diarrhea, No Constipation, No Melena, No Hematochezia, No Other Genitourinary: No Dysuria, No Frequency, No Incontinence, No Hematuria, No Retention, No Other Musculoskeletal: other (Left knee pain); No neck pain, No shoulder pain, No arm pain; back pain; No hand pain, No leg pain, No foot pain Skin: No Rash, No Lesions, No Jaundice, No Bruising, No Other Objective Vitals Vital Signs Date Time Temp Pulse Resp B/P (MAP) Pulse Ox O2 Delivery O2 Flow Rate FiO2 09/25/24 13:00 97.8 60 14 165/90 (115) 97 97.8 09/25/24 07:45 Room Air* 0 21 Intake/Output Intake and Output 09/25/24 07:00 Intake Total 300 ml Balance 300 ml Intake Oral 200 ml IV Total 100 ml # Voids 2 General Appearance: Alert, Oriented X3, Cooperative HEENT: Atraumatic, PERRLA Lungs: Clear to auscultation, Normal air movement Cardiovascular: Normal S1, Normal S2 Abdomen: Normal bowel sounds, Soft, No tenderness, No hepatospenomegaly Musculoskeletal: Normal sensory function, Normal motor function Skin: Dry, Intact Psych/Mental Status: Mental status NL, Mood NL Medications Current Medications Medications Dose Ordered Sig/Buster Route Start Time Stop Time Status Last Admin Dose Admin Aspirin 81 mg DAILY PO 09/25/24 10:00 09/25/24 09:01 81 MG Atorvastatin Calcium 40 mg HS PO 09/24/24 22:00 09/24/24 21:47 40 MG Levetiracetam 100 ml @ 400 mls/hr BID IV 09/24/24 22:00 09/25/24 09:34 400 MLS/HR Metoprolol Tartrate 25 mg BID PO 09/24/24 22:00 09/24/24 21:50 25 MG Hydralazine HCl 10 mg Q6HP PRN IV 09/24/24 14:15 Duloxetine HCl 30 mg DAILY PO 09/25/24 10:00 09/25/24 09:02 30 MG Gabapentin 300 mg TID PO 09/24/24 22:00 09/25/24 13:10 300 MG Sodium Chloride 10 ml Q8HR IV 09/24/24 22:00 09/25/24 13:10 10 ML Acetaminophen/ Hydrocodone Bitart 1 tab Q4HP PRN PO 09/24/24 14:15 09/24/24 21:48 1 TAB Ondansetron HCl 4 mg Q4HP PRN IV 09/24/24 14:15 Docusate Sodium 100 mg BIDPRN PRN PO 09/24/24 14:15 Acetaminophen 650 mg Q6HP PRN PO 09/24/24 14:15 Morphine Sulfate 2 mg Q4HPRN PRN IV 09/24/24 14:15 Hold Nitroglycerin 0.4 mg Q5MINP PRN SL 09/24/24 15:00 Morphine Sulfate 2 mg Q30M PRN IV 09/24/24 15:00 Acetaminophen/ Hydrocodone Bitart 1 tab Q6HP PRN PO 09/24/24 18:15 09/25/24 13:10 1 TAB Alprazolam 0.25 mg Q8HP PRN PO 09/25/24 12:00 Laboratory Results Laboratory Tests 09/25/24 05:00 Chemistry Test 09/25/24 05:00 Albumin 3.8 g/dL (3.2-4.8) Calcium Level 9.1 mg/dL (8.7-10.4) Total Protein 5.7 g/dL (5.7-8.2) LFT Test 09/25/24 05:00 Alanine Aminotransferase (ALT) 13 U/L (7-40) Alkaline Phosphatase 51 U/L (46-116) Aspartate Amino Transferase (AST) 34 U/L (<34) Total Bilirubin 1.1 mg/dL (0.2-1.0) H Labs and/or images reviewed: Labs reviewed by me, Image(s) reviewed by me Assessment/Plan Assessment/Plan Impression: -rule out lumbar spinal stenosis -scoliosis -anxiety disorder -dyslipidemia -seizures -history of CVA Plan: -CT scan of the lumbar spine -pain management -antianxiety meds -continue antiseizure medications -further course of care per findings of CT scan Total time spent with patient discussing and formulating plan of care: 35 minutes. This medical document was created using an electronic medical record system with [employer] dictation system. Although this document has been carefully reviewed, there may still be some phonetic and typographical errors. These areas are purely typographical due to imperfections of the software programs, and do not reflect any compromise in the patient's medical care. Plan discussed with: Patient, Other (RN) My Orders Orders - PRICILLA JACINTO NP Procedure Category Date Status Time Ls Spine Wo Contrast CT 09/25/24 Taken 11:37 Alprazolam Tablet PHA 09/25/24 In Process (Xanax Tablet) 12:00 Date of Service: Sep 25, 2024 Billing Provider: PRICILLA JACINTO NP Common Visit Codes: [id number] INP/OBS CARE(HIGH) PRICILLA JACINTO NP Sep 25, 2024 13:34
[2024-09-25] MEDS: amLODIPine BESYLATE 5 MG TAB PO ONE (15:15)
[2024-09-25] MEDS: ALPRAZolam 0.25 MG TAB PO PRN (20:37)
[2024-09-25] MEDS: DOCUSATE SOD 100 MG CAP PO PRN (20:37)
[2024-09-26] MEDS: traZODone HCL 50 MG TAB PO ONE (00:02)
[2024-09-26 01:00] VITALS: BP 141/92; PULSE 86; RESP 17; TEMP 97.6; O2SAT 97
[2024-09-26 05:00] VITALS: BP 152/90; PULSE 70; RESP 17; TEMP 97.1; O2SAT 95
[2024-09-26] MEDS: hydrALAZINE HCL 20 MG/ML VL IV PRN (05:25)
--- NOTE | 2024-09-26 06:55 | DVHPN2 ---
Progress Note - Dictate Date Seen: Sep 26, 2024 Medical Necessity Reason Pt with a Central, PICC or Fol: No vital signs Vital Sign Date Time Temp Pulse Resp B/P (MAP) Pulse Ox O2 Delivery O2 Flow Rate FiO2 09/26/24 05:25 154/91 09/26/24 05:00 97.1 70 17 95 97.1 09/25/24 20:00 Room Air* 0 21 Total Intake and Output 09/25/24 09/25/24 09/26/24 15:00 23:00 07:00 Intake Total 700 ml 500 ml Output Total 8 ml Balance 692 ml 500 ml medications Current Medications Medications Dose Ordered Sig/Buster Route Start Time Stop Time Status Last Admin Dose Admin Aspirin 81 mg DAILY PO 09/25/24 10:00 09/25/24 09:01 81 MG Atorvastatin Calcium 40 mg HS PO 09/24/24 22:00 09/25/24 22:16 40 MG Levetiracetam 100 ml @ 400 mls/hr BID IV 09/24/24 22:00 09/25/24 22:16 400 MLS/HR Hydralazine HCl 10 mg Q6HP PRN IV 09/24/24 14:15 09/26/24 05:25 10 MG Duloxetine HCl 30 mg DAILY PO 09/25/24 10:00 09/25/24 09:02 30 MG Gabapentin 300 mg TID PO 09/24/24 22:00 09/26/24 06:04 300 MG Sodium Chloride 10 ml Q8HR IV 09/24/24 22:00 09/26/24 05:25 10 ML Acetaminophen/ Hydrocodone Bitart 1 tab Q4HP PRN PO 09/24/24 14:15 09/26/24 03:30 1 TAB Ondansetron HCl 4 mg Q4HP PRN IV 09/24/24 14:15 Docusate Sodium 100 mg BIDPRN PRN PO 09/24/24 14:15 09/25/24 20:37 100 MG Acetaminophen 650 mg Q6HP PRN PO 09/24/24 14:15 Morphine Sulfate 2 mg Q4HPRN PRN IV 09/24/24 14:15 Hold Nitroglycerin 0.4 mg Q5MINP PRN SL 09/24/24 15:00 Morphine Sulfate 2 mg Q30M PRN IV 09/24/24 15:00 Acetaminophen/ Hydrocodone Bitart 1 tab Q6HP PRN PO 09/24/24 18:15 09/26/24 00:03 1 TAB Alprazolam 0.25 mg Q8HP PRN PO 09/25/24 12:00 09/26/24 04:28 0.25 MG Amlodipine Besylate 10 mg DAILY PO 09/26/24 10:00 laboratory and microbiology Laboratory Tests 09/25/24 05:00 Test 09/25/24 05:00 Range/Units Serum Glucose 84 74-106 mg/dL Assessment/Plan Patient is a 69-year-old female who presented with anxiety and low back pain. Her anxiety was more than usual and could not sleep for few prior to presentation. Low back pain was also more than usual and was accompanied with left knee pain. Patient is known to our practice from outside and before. Patient herself as test follow-up/consult. Denies any chest pain/shortness of breath/palpitation/loss of consciousness. Frail lady, not in acute distress, no JVD. No carotid bruit. Lungs are clear to auscultation. No using accessory muscles of breathing. Cardiac: Regular, bradycardic, no thrill. No gallop. Abdomen is soft. There is no hepatomegaly. There is no mass. Extremities do not reveal edema. Dorsalis pedis is 2+ bilateral Past medical history includes hypertension, seizure disorder, old history of CVA, SVT (history of), osteoarthritis, scoliosis, radiculopathy, migraine, hold history of appendectomy and hysterectomy. Echocardiogram of July 09, 2021 revealed normal ejection fraction, mild concentric left ventricle hypertrophy, minimal MVP, trace MR/TR and aortic root of 3.5 cm Echocardiogram of September 22, 2023 revealed mild concentric left ventricular hypertrophy, ejection fraction of 60-65%, aortic root at 3.7 cm and ascending aorta 3.9 cm. Creatinine: 0.89 - 0.77 Potassium: 3.8 - 3.7 Lumbar x-ray revealed: 1. Limited study due to severe scoliosis and bone demineralization. Recommend CT if there is concern for fracture. Lumbar spine CT revealed: IMPRESSION: 1. There is a marked rotatory levoscoliosis present with its apex at L3. 2. At L3-4 there is a right lateral disc protrusion with possible effacement of the exiting right-sided nerve root in conjunction with facet joint hypertrophy and shortened pedicles. 3. At L5-S1 there is narrowing of the right neural foramen by osteophytes with possible effacement of the exiting right-sided nerve root Patient is a 68-year-old female who presented with increased anxiety and low back pain. There was some knee discomfort also. Presentation is not considered cardiac at this point. Anxiety disorder Old history of CVA Seizure disorder Cardiac suggestion for management: Manage on telemetry Follow-up electrolytes and kidney function tests and correct abnormalities Evaluation and management of back pain as per primary team Cardiac-arri[place], the patient can be followed as outpatient Further evaluation and management depends on the above and clinical course A total of 65 minutes was spent reviewing the patient record, examining the patient, making a diagnostic and therapeutic plan, discussing this plan with medical personnel, following up on diagnostic studies and following the patient for clinical stability excluding any and all procedures. At least 50% of this time was spent in direct, [id number] contact. Thank you for allowing me to participate in this patient's care. Further recommendations will depend on patient's clinical course. Please do not hesitate to contact me if you have any questions or concerns. This medical document was created using electronic medical record system with [employer] computerized dictation system. Although this document has been carefully reviewed, there may still be some phonetic and typographical errors. These areas are purely typographical due to the imperfection of the software programs, and do not reflect any compromise in the patient's medical care. Plan discussed with: Patient, Other (nurse) DIMAS ST MD Sep 26, 2024 06:55
[2024-09-26 07:36] VITALS: RESP 20
[2024-09-26 09:00] VITALS: BP 149/32; PULSE 91; RESP 19; TEMP 98.9; O2SAT 99
[2024-09-26] MEDS: amLODIPine BESYLATE 5 MG TAB PO SCH (09:51)
[2024-09-26 13:00] VITALS: BP 131/82; PULSE 85; RESP 19; TEMP 100; O2SAT 97
--- NOTE | 2024-09-26 14:38 | DVHDS2 ---
Discharge Summary Date of Admission Sep 24, 2024 at 14:57 Date of Discharge: Sep 26, 2024 Admitting Diagnosis Lumbar sacral sprain Labs/Diagnostic Data: Laboratory Results Test 09/25/24 05:00 White Blood Count 6.0 10^3/uL (4.4-10.8) Red Blood Count 3.94 10^6/uL (4.0-5.20) Hemoglobin 12.6 g/dL (12.2-16.2) Hematocrit 37.2 % (36.0-46.0) Mean Corpuscular Volume 94.4 fL (80.0-100.0) Mean Corpuscular Hemoglobin 31.9 pg (28.0-32.0) Mean Corpuscular Hemoglobin Concent 33.8 g/dL (32.0-36.0) Red Cell Distribution Width 14.0 % (11.8-14.3) Platelet Count 196 10^3/uL (140-450) Mean Platelet Volume 7.5 fL (6.9-10.8) Neutrophils (%) (Auto) 66.3 % (37.0-80.0) Lymphocytes (%) (Auto) 23.0 % (10.0-50.0) Monocytes (%) (Auto) 8.7 % (0.0-12.0) Eosinophils (%) (Auto) 1.3 % (0.0-7.0) Basophils (%) (Auto) 0.7 % (0.0-2.0) Neutrophils # (Auto) 4.0 10 ^3/uL (1.6-8.6) Lymphocytes # (Auto) 1.4 10 ^3/uL (0.4-5.4) Monocytes # (Auto) 0.5 10 ^3/uL (0-1.3) Eosinophils # (Auto) 0.1 10 ^3/uL (0-0.8) Basophils # (Auto) 0 10 ^3/uL (0-0.2) Nucleated Red Blood Cells 0.1 % Sodium Level 143 mmol/L (136-145) Potassium Level 3.7 mmol/L (3.5-5.1) Chloride Level 111 mmol/L (98-107) Carbon Dioxide Level 25 mmol/L (20-31) Anion Gap 7 (5-15) Blood Urea Nitrogen 11 mg/dL (9-23) Creatinine 0.77 mg/dL (0.550-1.02) Glomerular Filtration Rate Calc 82 mL/min (>90) BUN/Creatinine Ratio 14.3 (10.0-20.0) Serum Glucose 84 mg/dL (74-106) Calcium Level 9.1 mg/dL (8.7-10.4) Total Bilirubin 1.1 mg/dL (0.2-1.0) Aspartate Amino Transferase (AST) 34 U/L (<34) Alanine Aminotransferase (ALT) 13 U/L (7-40) Alkaline Phosphatase 51 U/L (46-116) Total Protein 5.7 g/dL (5.7-8.2) Albumin 3.8 g/dL (3.2-4.8) Other Laboratory Tests 09/25/24 05:00 Brief Hx & Hospital Course: History of Present Illness The patient is a 69 year female with past medical history of CVA, seizures, hypertension, anxiety, and hyperlipidemia who presented to [facility] ED with complaint of lower back pain. Patient reports she has been experiencing lower back pain, radiating to the left knee, unable to sleep for the past 3 days, getting worse today that prompted this visit. Patient was seen and evaluated in the ED, laboratory data shows WBC 7.6, platelets 239, sodium 142, potassium 3.8, BUN 9, creatinine 0.89, glucose 100, calcium 11.0, blood pressure 140/95, heart rate 74, temperature 97.7 F, O2 saturation 99% on room air. Lumbar spine x-ray limited study due to severe scoliosis and bone demineralization. Patient was given morphine sulfate 4 mg IV x1, please see medication orders section in the computer. On my assessment, patient denied chest pain, no headache, no dizziness, no diaphoresis, no shortness of breaths, no nausea, no vomiting, no fever, no chills. Patient was admitted for further evaluation and medical management. Patient has CT scan of her lumbar spinal area. Patient's pain generally located in her left lower extremity with radiculopathy as well as noted knee pain. CT scan impression of the following: IMPRESSION: 1. There is a marked rotatory levoscoliosis present with its apex at L3. 2. At L3-4 there is a right lateral disc protrusion with possible effacement of the exiting right-sided nerve root in conjunction with facet joint hypertrophy and shortened pedicles. 3. At L5-S1 there is narrowing of the right neural foramen by osteophytes with possible effacement of the exiting right-sided nerve root Patient denies having any pain to her right lower extremity. States that her lower back pain is now comparable to her chronic back pain. Patient is agreeable to be discharged home. She will continue all previous home medications and medications for her back pain. Physical examination General: Alert and Oriented x3. No acute distress. Well-nourished. Eyes: EOMI. Anicteric. HENT: Moist mucous membranes. Lungs: Clear to auscultation bilaterally. No accessory muscle use. Cardiovascular: Regular rate and rhythm. No murmur. No JVD. Abdomen: Soft, non-tender and non-distended. No palpable masses. Extremities: No edema. Non-tender. Skin: No rashes or lesions. Warm. Neurologic: No focal neurological deficits. CN II-XII grossly intact, but not individually tested. Psychiatric: Cooperative. Appropriate mood and affect. Total time spent with patient discussing and formulating plan of care: 35 minutes. This medical document was created using an electronic medical record system with [employer] dictation system. Although this document has been carefully reviewed, there may still be some phonetic and typographical errors. These areas are purely typographical due to imperfections of the software programs, and do not reflect any compromise in the patient's medical care. Condition at Discharge: Guarded Final Diagnosis/Problems List Lumbar spinal stenosis Secondary diagnosis: -scoliosis -anxiety disorder -dyslipidemia -seizures -history of CVA Discharge Disposition: Home Discharge Instruct/Medications Diet: Regular Activity: No Restrictions, As Tolerated Follow Up/Referral: Follow up with PCPJonah in 1-2 weeks Medications: Continue all previous home medications 36 Discharge Statement: "Patient was advised to return to the ER or call 911 if any headaches, dizziness, shortness of breath, chest pain, abdominal pain, bleeding, fevers, or worsening of medical condition. Patient was counseled about treatment plan, medications, possible side effects, patientverbalized understanding. All questions were answered to the best of my ability. This discharge took greater then 30 minutes in planning, reviewing documentation, counseling the patient, and discussing with other team members." ASSESSMENT ASSESSMENT Assessment Lumbar spinal stenosis Date of Service: Sep 26, 2024 Billing Provider: PRICILLA JACINTO NP Common Visit Codes: 13219-FIG/OBS DISCH DAY >30min PRICILLA JACINTO NP Sep 26, 2024 14:38
[2024-09-26 15:38] VITALS: BP 149/82; PULSE 52; TEMP 37.8
== END 2024-09-26 16:00 | disposition home or self-care (01) | DRG 552 ==
LOC: ER 06:58 → OVERFLOW 14:57 → EAST 16:32
PROVIDERS: ADMIT Nurse Practitioner Acute Care; ATTEND Nurse Practitioner Acute Care
DX: M48.061 Spinal stenosis, lumbar region without neurogenic claudication (principal); S39.012A Strain of muscle, fascia and tendon of lower back, initial encounter; M41.9 Scoliosis, unspecified; E78.5 Hyperlipidemia, unspecified; F41.9 Anxiety disorder, unspecified; I11.9 Hypertensive heart disease without heart failure; G40.909 Epilepsy, unspecified, not intractable, without status epilepticus; Z90.710 Acquired absence of both cervix and uterus; Z90.49 Acquired absence of other specified parts of digestive tract; Z88.1 Allergy status to other antibiotic agents; Z88.0 Allergy status to penicillin; Z87.891 Personal history of nicotine dependence; Z86.73 Personal history of transient ischemic attack (TIA), and cerebral infarction without residual deficits; Z79.899 Other long term (current) drug therapy; Z79.02 Long term (current) use of antithrombotics/antiplatelets; X58.XXXA Exposure to other specified factors, initial encounter; Y93.89 Activity, other specified; Y92.89 Other specified places as the place of occurrence of the external cause; Y99.8 Other external cause status
CPT/HCPCS: 36415; 72100; 72131; 80048; 80053; 85025; 96361; 96372; 99291; G0378; J1885; J2250; J2405

== ENCOUNTER 2024-12-03 16:21 | Emergency (ER) | payer MEDICARE, OTHER ==
[~2024-12-03] VITALS: Ht 165.1 cm; Wt 59.0 kg
[~2024-12-03 16:21] MED LIST changes: -MOME1AER3 INH
--- NOTE | 2024-12-03 16:28 | ED.PDOC ---
History of Present Illness HPI Comments 69-year-old female who comes in with chief complaint of a choking episode. The patient states that while she was in the car with her , she took a pill for pain and started choking on the pill. According to the family, the patient choked for approximately 30 minutes. 911 was called and when the paramedics arrived, the patient had an oxygen saturation of 88% with some stridor. The patient was then placed on 4 L of nasal cannula oxygen and her oxygen saturation went up to 97%. At this time, the patient's seems more comfortable in his not complaining of any chest pain, nausea or vomiting. The patient does have a history of CVA in the past but it did not cause any problems with swallowing. Time Seen by MD: 16:22 Primary Care Provider: ALEXI Reviewed Notes: Nurses Notes, Rn Clinician Notes, Medications, Allergies (Allergies listed above) Allergies: Coded Allergies: Cephalexin (Verified Allergy, Unknown, 06/29/21) Penicillins (Verified Allergy, Unknown, 06/27/21) Home Meds Active Scripts Levetiracetam (Keppra) 1,000 Mg Tab, 1 TAB PO BID, #60 TAB 5 Refills Prov:KANDACE WILHELM MD 04/09/23 Reported Medications Doxycycline Hyclate (Doxycycline Hyclate) 100 Mg Cap, 1 CAP PO BID for 14 Days, #28 09/26/23 Lisinopril (Lisinopril) 2.5 Mg Tab, 1 TAB PO DAILY 09/26/23 Metoprolol Succinate (Metoprolol Succinate Er) 50 Mg Tab, 1 TAB PO DAILY 09/26/23 Duloxetine Hcl (Cymbalta) 30 Mg Cap, 1 TAB PO DAILY 09/26/23 Hydrocodone-Acetaminophen (Hydrocodone/Acetaminophen 7.5-325 mg) 1 Tab Tab, 1 TAB PO QID for SCOLIOSIS 09/22/23 Baclofen (Baclofen) 20 Mg Tab, 10 MG PO TID for SCOLIOSIS, TAB 09/22/23 Clonidine Hydrochloride (Clonidine Hcl) 0.1 Mg Tab, 0.1 MG PO BID for BLOOD PRESSURE, TAB 09/22/23 Aripiprazole (Abilify) 2 Mg Tab, 0.5 MG PO QPM for DEPRESSION, TAB 09/22/23 Ezetimibe (Zetia) 10 Mg Tab, 1 TAB PO DAILY for CHOLESTEROL, #30 TAB 5 Refills 09/22/23 Atorvastatin Calcium (Lipitor) 40 Mg Tab, 1 TAB PO QPM for CHOLESTEROL, #90 TAB 1 Refill 09/22/23 Trazodone Hcl (Trazodone Hcl) 100 Mg Tab, 1 TAB PO BID PRN for FOR INSOMNIA 04/08/23 Gabapentin (Gabapentin) 300 Mg Cap, 300 MG PO TID for MUSCLE PAIN for 30 Days, MG 06/28/21 Clopidogrel Bisulfate (CLOPIDOGREL) 75 Mg Tab, 75 MG PO DAILY for STROKE/BLOOD THINNER for 30 Days, MG 06/28/21 Alprazolam (Alprazolam) 1 Mg Tab, 1 TAB PO BID for ANXIETY, #60 TAB 06/28/21 Information Source: Patient, Emergency Med Personnel Mode of Arrival: EMS Severity: Mild Timing: Minutes Duration: Since onset Prehospital treatment: None Associated signs and symptoms The patient denies any vomiting or diarrhea at this time Past Medical History PAST MEDICAL HISTORY: CVA, HTN, Seizures Past Medical History (Other): Arthritis, neuropathy Surgical History: Appendectomy, Hysterectomy 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 Family History Family History: Reviewed,noncontributory to illness Social History Smoker: Non-Smoker Alcohol: Denies ETOH Use Drugs: Denies Drug Use Lives In: Home Constitutional: denies: chills, diaphoresis, fatigue, fever, malaise, sweats, weakness, others EENTM: denies: blurred vision, double vision, ear bleeding, ear discharge, ear drainage, ear pain, ear ringing, eye pain, eye redness, hearing loss, mouth pain, mouth swelling, nasal discharge, nose bleeding, nose congestion, nose pain, photophobia, tearing, throat pain, throat swelling, voice changes, others Respiratory: reports: cough, shortness of breath, others (Choking episode); denies: hemoptysis, orthopnea, SOB at rest, SOB with excertion, stridor, wheezing Cardiovascular: denies: chest pain, dizzy spells, diaphoresis, Dyspnea on exertion, edema, irregular heart beat, left arm pain, lightheadedness, palpitations, PND, syncope, others Gastrointestinal: denies: abdomen distended, abdominal pain, blood streaked bowels, constipated, diarrhea, dysphagia, difficulty swallowing, hematemesis, melena, nausea, poor appetite, poor fluid intake, rectal bleeding, rectal pain, vomiting, others Genitourinary: denies: abnormal vagina bleeding, burning, dyspareunia, dysuria, flank pain, frequency, hematuria, incontinence, pain, , vagina discharge, urgency, others Neurological: denies: dizziness, fainting, headache, left sided numbness, left sided weakness, numbness, paresthesia, pre-existing deficit, right sided numbness, right sided weakness, seizure, speech problems, tingling, tremors, weakness, others Musculoskeletal: denies: back pain, gout, joint pain, joint swelling, muscle pain, muscle stiffness, neck pain, others Integumetry: denies: bruises, change in color, change in hair/nails, dryness, laceration, lesions, lumps, rash, wounds, others Allergic/Immunocompromised: denies: Difficulty Healing, Frequent Infections, Hives, Itching, others Hematologic/Lymphatic: denies: anemia, blood clots, easy bleeding, easy bruising, swollen glands, others Endocrine: denies: excessive hunger, excessive sweating, excessive thirst, excessive urination, flushing, intolerance to cold, intolerance to heat, unexplained weight gain, unexplained weight loss, others Psychiatric: denies: anxiety, bipolar disorder, depression, hopeless, panic disorder, schizophrenia, sleepless, suicidal, others Physical Exam General Appearance: Moderate Distress HEENT: Normal ENT Inspection, Pharynx Normal, TMs Normal Neck: Full Range of Motion, Non-Tender, Normal, Normal Inspection Respiratory: Chest Non-Tender, No Accessory Muscle Use, No Respiratory Distress, Rhonchi Cardiovascular: No Edema, No JVD, No Murmur, No Gallop, Normal Peripheral Pulses, Regular Rate/Rhythm Breast Exam: Deferred Gastrointestinal: No Organomegaly, Non Tender, No Pulsatile Mass, Normal Bowel Sounds, Soft Genitalia: Deferred Pelvic: Deferred Rectal: Deferred Extremities: No calf tenderness, Normal capillary refill, Normal inspection, Normal range of motion, Non-tender, No pedal edema Musculoskeletal : Apperance: Normal Neurologic: Alert, picture framer II-XII nml as Tested, No Motor Deficits, Normal Affect, Normal Mood, No Sensory Deficits Cerebellar Function: Normal Reflexes: Normal Skin: Dry, Normal Color, Warm Lymphatic: No Adenopathy Was a procedure done? Was a procedure done?: No EKG EKG : Pulse Rate (adult): 64 [place]: Normal Cardiac Rhythm: NSR Block: None ST: Nonsp Differential Dx Considerations may include: Choking episode, bronchitis, pneumonia, dehydration X-Ray, Labs, Meds, VS Vital Signs Date Time Temp Pulse Resp B/P (MAP) Pulse Ox O2 Delivery O2 Flow Rate FiO2 12/03/24 17:28 15 98 Nasal Cannula* 2 28 12/03/24 17:00 97.7 64 15 132/73 (92) 98 97.7 12/03/24 17:00 64 15 98 Nasal Cannula* 2 28 12/03/24 16:28 64 12/03/24 16:27 97.7 67 26 143/96 97 97.7 12/03/24 16:23 64 Lab Test 12/03/24 16:51 Range/Units White Blood Count 8.6 4.4-10.8 10^3/uL Red Blood Count 4.34 4.0-5.20 10^6/uL Hemoglobin 13.8 12.2-16.2 g/dL Hematocrit 41.0 36.0-46.0 % Mean Corpuscular Volume 94.4 80.0-100.0 fL Mean Corpuscular Hemoglobin 31.9 28.0-32.0 pg Mean Corpuscular Hemoglobin Concent 33.7 32.0-36.0 g/dL Red Cell Distribution Width 13.7 11.8-14.3 % Platelet Count 259 140-450 10^3/uL Mean Platelet Volume 6.7 L 6.9-10.8 fL Neutrophils (%) (Auto) 84.6 H 37.0-80.0 % Lymphocytes (%) (Auto) 11.1 10.0-50.0 % Monocytes (%) (Auto) 2.9 0.0-12.0 % Eosinophils (%) (Auto) 0.9 0.0-7.0 % Basophils (%) (Auto) 0.5 0.0-2.0 % Neutrophils # (Auto) 7.3 1.6-8.6 10 ^3/uL Lymphocytes # (Auto) 0.9 0.4-5.4 10 ^3/uL Monocytes # (Auto) 0.2 0-1.3 10 ^3/uL Eosinophils # (Auto) 0.1 0-0.8 10 ^3/uL Basophils # (Auto) 0 0-0.2 10 ^3/uL Nucleated Red Blood Cells 0.1 % Sodium Level 144 136-145 mmol/L Potassium Level 3.9 3.5-5.1 mmol/L Chloride Level 108 H 98-107 mmol/L Carbon Dioxide Level 29 20-31 mmol/L Anion Gap 7 5-15 Blood Urea Nitrogen 8 L 9-23 mg/dL Creatinine 0.86 0.550-1.02 mg/dL Glomerular Filtration Rate Calc 72 >90 mL/min BUN/Creatinine Ratio 9.3 L 10.0-20.0 Serum Glucose 134 H 74-106 mg/dL Calcium Level 9.4 8.7-10.4 mg/dL B-Type Natriuretic Peptide 100.03 0-100 pg/mL IV Hep-Lock was established The patient is being given [place] for the back pain The CBC and chemistry panel are within normal limits The patient remains on oxygen at 2 L nasal cannula and saturating at 98% The chest x-ray shows: IMPRESSION: Bilateral lung base infiltrates and/or effusions. This appearance may be due to pneumonia and/or CHF. The patient is being admitted at this time Images Reviewed?: Images reviewed and evaluated by me Time of 1ST Reevaluation: 16:28 Reevaluation 1ST: Unchanged Patient Education/Counseling: Diagnosis, Treatment, Prognosis Family Education/Counseling: No Family Present SEPSIS Sepsis Screen Physician Orders Urinalysis (12/03/24 16:23) Chest Portable (12/03/24 16:37) Heplock Iv (12/03/24 16:23) Pulse Oximetry (12/03/24 16:23) Sr. Director (12/03/24 16:23) Blood Pressure (12/03/24 16:23) Electrocardigram (12/03/24 16:23) Vital Signs Date Time Temp Pulse Resp B/P (MAP) Pulse Ox O2 Delivery O2 Flow Rate FiO2 12/03/24 17:28 15 98 Nasal Cannula* 2 28 12/03/24 17:00 97.7 64 15 132/73 (92) 98 97.7 12/03/24 17:00 64 15 98 Nasal Cannula* 2 28 12/03/24 16:28 64 12/03/24 16:27 97.7 67 26 143/96 97 97.7 12/03/24 16:23 64 Laboratory Tests Test 12/03/24 16:51 White Blood Count 8.6 10^3/uL (4.4-10.8) Departure 1 Departure Time of Disposition: 18:22 Impression: Primary Impression: Choking episode Additional Impressions: Hypoxic Intractable back pain Disposition: ADMITTED INPATIENT Admit to: Med Surg Condition: Fair Critical Care Note Critical Care Time?: No Stability Stability form required: Yes Unstable for transfer: ED Physician Assesment (Clinical assesment) Heart Score Heart Score: Heart Score Response (Comments) Value History N/A 0 EKG N/A 0 Age N/A 0 Risk Factors N/A 0 Troponin N/A 0 Total 0 RHONDA PIZARRO MD Dec 03, 2024 16:28
[2024-12-03 17:00] VITALS: PULSE 64; RESP 15; O2SAT 98
[2024-12-03 17:12] LABS: Hematocrit 41.0 % (36.0-46.0); Hemoglobin 13.8 g/dL (12.2-16.2); Mean Corpuscular Hemoglobin 31.9 pg (28.0-32.0); Mean Corpuscular Volume 94.4 fL (80.0-100.0); Nucleated Red Blood Cells % 0.1 %
--- NOTE | 2024-12-03 17:15 | DVH ---
EXAM: XY CHEST PORTABLE HISTORY: choking COMPARISON: CT CT ANGIO CHEST CONTRAST on DOS: 09/22/23, CT CHST AB PEL WO CON-NO IV/ORAL on DOS: 09/20 TECHNIQUE: Portable upright AP view of the chest was performed. FINDINGS: There are hazy opacities in the bilateral lung bases. The bilateral hemidiaphragms are partially obsc ured. No pneumothorax. The heart is not enlarged. There is mild thoracic scoliosis. IMPRESSION: Bilateral lung base infiltrates and/or effusions. This appearance may be due to pneumonia and/or CHF.
[2024-12-03 17:19] LABS: Potassium 3.9 mmol/L (3.5-5.1); Sodium 144 mmol/L (136-145)
[2024-12-03 17:20] LABS: Anion Gap 7 (5-15); Calcium 9.4 mg/dL (8.7-10.4); Carbon Dioxide 29 mmol/L (20-31)
[2024-12-03 17:21] LABS: Chloride 108 mmol/L (98-107)
[2024-12-03 17:25] LABS: BUN/Creatinine Ratio 9.3 (10.0-20.0)
[2024-12-03 17:49] LABS: Blood Urea Nitrogen 8 mg/dL (9-23); Glucose 134 mg/dL (74-106)
[2024-12-03] MEDS ORDERED: MORPHINE SULFATE INJ 2 MG/ml SYRG IV ONE (18:15)
[2024-12-03] MEDS ORDERED: ONDANSETRON HCL 4 MG/2 ML VIAL IV ONE (18:15)
[2024-12-03] MEDS: HYDROcodone-ACET 7.5/325MG TAB PO ONE (18:28)
[2024-12-03] MEDS ORDERED: SODIUM BICARB 8.4% 50Meq/50ml SYR Vial IV ONE (20:45)
[2024-12-03 21:36] VITALS: PULSE 91; RESP 20; O2SAT 97
[2024-12-03 21:54] LABS: Urine Protein, UAD Negative (Negative)
[2024-12-03] MEDS: HYDROcodone-ACET 5/325MG TAB PO ONE (23:49)
[2024-12-04 00:24] VITALS: BP 126/78; PULSE 89; RESP 20; TEMP 98.1; O2SAT 98
--- NOTE | 2024-12-06 10:44 | ECG ---
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
== END 2024-12-04 02:25 | disposition left against medical advice (07) ==
LOC: ER 16:21 → EDBD 16:21 → ER 12-04 02:25
DX: T17.920A Food in respiratory tract, part unspecified causing asphyxiation, initial encounter (principal); M54.50 Low back pain, unspecified; I10 Essential (primary) hypertension; Z86.73 Personal history of transient ischemic attack (TIA), and cerebral infarction without residual deficits; Z79.899 Other long term (current) drug therapy; Z90.710 Acquired absence of both cervix and uterus; Z90.49 Acquired absence of other specified parts of digestive tract; Z88.1 Allergy status to other antibiotic agents; Z88.0 Allergy status to penicillin
CPT/HCPCS: 36415; 71045; 80048; 81001; 83880; 85025; 93005

== ENCOUNTER 2024-12-21 14:37 | Inpatient (IN) | payer MEDICARE, BC ==
[~2024-12-21] VITALS: Ht 167.6 cm; Wt 68.4 kg
--- NOTE | 2024-12-21 15:05 | ED.PDOC ---
Altered Mental Status HPI Comments This is a 69 year-old female, with a PMHX of CVA, HTN, and Epilepsy, who presents to the ED via EMS with a chief complaint of drug overdose with associated Nausea and dizziness as of minutes ago. Per EMS, patient took an unknown amount of pills, medication is also unknown. Patient is taking Gabapentin, Trazodone, Plavix, Cornelius, and other medications at this time. Per EMS, patient was given 1mg Narcan en route. Upon arrival to the ED, patient is acting sluggish and slow to responses. Patients BP is 112/83 at this time. Patient has no further complaints at this time and otherwise denies chest pain, palpitations, SOB, V/D, fever, chills, or weakness. Chief Complaint: Overdose Time Seen by MD: 14:43 Primary Care Provider: ALEXI Busch Notes: Nurses Notes, Medications, Allergies Allergies: Coded Allergies: Cephalexin (Verified Allergy, Unknown, 06/29/21) Penicillins (Verified Allergy, Unknown, 06/27/21) Home Meds Active Scripts Levetiracetam (Keppra) 1,000 Mg Tab, 1 TAB PO BID, #60 TAB 5 Refills Prov:KANDACE WILHELM MD 04/09/23 Reported Medications Doxycycline Hyclate (Doxycycline Hyclate) 100 Mg Cap, 1 CAP PO BID for 14 Days, #28 09/26/23 Lisinopril (Lisinopril) 2.5 Mg Tab, 1 TAB PO DAILY 09/26/23 Metoprolol Succinate (Metoprolol Succinate Er) 50 Mg Tab, 1 TAB PO DAILY 09/26/23 Duloxetine Hcl (Cymbalta) 30 Mg Cap, 1 TAB PO DAILY 09/26/23 Hydrocodone-Acetaminophen (Hydrocodone/Acetaminophen 7.5-325 mg) 1 Tab Tab, 1 TAB PO QID for SCOLIOSIS 09/22/23 Baclofen (Baclofen) 20 Mg Tab, 10 MG PO TID for SCOLIOSIS, TAB 09/22/23 Clonidine Hydrochloride (Clonidine Hcl) 0.1 Mg Tab, 0.1 MG PO BID for BLOOD PRESSURE, TAB 09/22/23 Aripiprazole (Abilify) 2 Mg Tab, 0.5 MG PO QPM for DEPRESSION, TAB 09/22/23 Ezetimibe (Zetia) 10 Mg Tab, 1 TAB PO DAILY for CHOLESTEROL, #30 TAB 5 Refills 09/22/23 Atorvastatin Calcium (Lipitor) 40 Mg Tab, 1 TAB PO QPM for CHOLESTEROL, #90 TAB 1 Refill 09/22/23 Trazodone Hcl (Trazodone Hcl) 100 Mg Tab, 1 TAB PO BID PRN for FOR INSOMNIA 04/08/23 Gabapentin (Gabapentin) 300 Mg Cap, 300 MG PO TID for MUSCLE PAIN for 30 Days, MG 06/28/21 Clopidogrel Bisulfate (CLOPIDOGREL) 75 Mg Tab, 75 MG PO DAILY for STROKE/BLOOD THINNER for 30 Days, MG 06/28/21 Alprazolam (Alprazolam) 1 Mg Tab, 1 TAB PO BID for ANXIETY, #60 TAB 06/28/21 Information Source: Patient Mode of Arrival: Ambulatory Severity: Moderate Timing: Minutes Duration: Since onset Prehospital treatment: Other (1mg Narcan ) History of: CVA Past Medical History PAST MEDICAL HISTORY: CVA, HTN, Seizures Surgical History: Appendectomy, Hysterectomy [employer] History: Denies all [employer] Hx Family History Family History: Reviewed,noncontributory to illness Social History Smoker: Non-Smoker Alcohol: Denies ETOH Use Drugs: Denies Drug Use Lives In: Home Constitutional: reports: others (not acting appropriate; slow to respond ); denies: chills, diaphoresis, fatigue, fever, malaise, sweats, weakness EENTM: denies: blurred vision, double vision, ear bleeding, ear discharge, ear drainage, ear pain, ear ringing, eye pain, eye redness, hearing loss, mouth pain, mouth swelling, nasal discharge, nose bleeding, nose congestion, nose pain, photophobia, tearing, throat pain, throat swelling, voice changes, others Respiratory: denies: cough, hemoptysis, orthopnea, SOB at rest, shortness of breath, SOB with excertion, stridor, wheezing, others Cardiovascular: denies: chest pain, dizzy spells, diaphoresis, Dyspnea on exertion, edema, irregular heart beat, left arm pain, lightheadedness, palpitations, PND, syncope, others Gastrointestinal: reports: nausea; denies: abdomen distended, abdominal pain, blood streaked bowels, constipated, diarrhea, dysphagia, difficulty swallowing, hematemesis, melena, poor appetite, poor fluid intake, rectal bleeding, rectal pain, vomiting, others Genitourinary: denies: abnormal vagina bleeding, burning, dyspareunia, dysuria, flank pain, frequency, hematuria, incontinence, pain, , vagina discharge, urgency, others Neurological: reports: dizziness; denies: fainting, headache, left sided nu mbness, left sided weakness, numbness, paresthesia, pre-existing deficit, right sided numbness, right sided weakness, seizure, speech problems, tingling, tremors, weakness, others Musculoskeletal: denies: back pain, gout, joint pain, joint swelling, muscle pain, muscle stiffness, neck pain, others Integumetry: denies: bruises, change in color, change in hair/nails, dryness, laceration, lesions, lumps, rash, wounds, others Allergic/Immunocompromised: denies: Difficulty Healing, Frequent Infections, Hives, Itching, others Hematologic/Lymphatic: denies: anemia, blood clots, easy bleeding, easy bruising, swollen glands, others Endocrine: denies: excessive hunger, excessive sweating, excessive thirst, excessive urination, flushing, intolerance to cold, intolerance to heat, unexpla ined weight gain, unexplained weight loss, others Psychiatric: denies: anxiety, bipolar disorder, depression, hopeless, panic disorder, schizophrenia, sleepless, suicidal, others All Other Systems: Reviewed and Negative Physical Exam General Appearance: Moderate Distress HEENT: Normal ENT Inspection, Pharynx Normal, TMs Normal Neck: Full Range of Motion, Non-Tender, Normal, Normal Inspection Respiratory: Chest Non-Tender, Lungs Clear, No Accessory Muscle Use, No Respiratory Distress, Normal Breath Sounds Cardiovascular: No Edema, No JVD, No Murmur, No Gallop, Normal Peripheral Pulses, Regular Rate/Rhythm Breast Exam: Deferred Gastrointestinal: No Organomegaly, Non Tender, No Pulsatile Mass, Normal Bowel Sounds, Soft Genitalia: Deferred Pelvic: Deferred Rectal: Deferred Extremities: No calf tenderness, Normal capillary refill, Normal inspection, Normal range of motion, Non-tender, No pedal edema Musculoskeletal : Apperance: Normal Neurologic: Alert, coding team lead II-XII nml as Tested, No Motor Deficits, Normal Affect, Normal Mood, No Sensory Deficits Cerebellar Function: NOT DONE Reflexes: NOT DONE Skin: Dry, Normal Color, Warm Peripheral Pulses: 3+ Radial (R), 3+ Radial (L) Lymphatic: No Adenopathy EKG EKG : Pulse Rate (adult): 101 [place]: Normal Cardiac Rhythm: ST Comments PVC Was a procedure done? Was a procedure done?: No Differential Diagnosis (ALOC) Differential Diagnosis: Dehydration, Seizure, Drug Overdose X-Ray, Labs, Meds, VS Vital Signs Date Time Temp Pulse Resp B/P (MAP) Pulse Ox O2 Delivery O2 Flow Rate FiO2 12/21/24 15:05 101 12/21/24 14:53 101 12/21/24 14:42 97.6 97 14 112/83 95 97.6 Lab Test 12/21/24 15:17 Range/Units White Blood Count 6.4 4.4-10.8 10^3/uL Red Blood Count 4.01 4.0-5.20 10^6/uL Hemoglobin 12.8 12.2-16.2 g/dL Hematocrit 36.5 36.0-46.0 % Mean Corpuscular Volume 91.0 80.0-100.0 fL Mean Corpuscular Hemoglobin 31.8 28.0-32.0 pg Mean Corpuscular Hemoglobin Concent 35.0 32.0-36.0 g/dL Red Cell Distribution Width 13.1 11.8-14.3 % Platelet Count 383 140-450 10^3/uL Mean Platelet Volume 7.1 6.9-10.8 fL Neutrophils (%) (Auto) 69.5 37.0-80.0 % Lymphocytes (%) (Auto) 20.9 10.0-50.0 % Monocytes (%) (Auto) 7.7 0.0-12.0 % Eosinophils (%) (Auto) 1.1 0.0-7.0 % Basophils (%) (Auto) 0.8 0.0-2.0 % Neutrophils # (Auto) 4.4 1.6-8.6 10 ^3/uL Lymphocytes # (Auto) 1.3 0.4-5.4 10 ^3/uL Monocytes # (Auto) 0.5 0-1.3 10 ^3/uL Eosinophils # (Auto) 0.1 0-0.8 10 ^3/uL Basophils # (Auto) 0.1 0-0.2 10 ^3/uL Nucleated Red Blood Cells 0.0 % Sodium Level Pending Potassium Level Pending Chloride Level Pending Carbon Dioxide Level Pending Anion Gap Pending Blood Urea Nitrogen Pending Creatinine Pending Glomerular Filtration Rate Calc Pending BUN/Creatinine Ratio Pending Serum Glucose Pending Calcium Level Pending Total Bilirubin Pending Aspartate Amino Transferase (AST) Pending Alanine Aminotransferase (ALT) Pending Alkaline Phosphatase Pending Troponin I High Sensitivity Pending Total Protein Pending Albumin Pending Patient alert. Came in because of she has taken excess amount of her regular medication. Unknown which medication she has taken. Vitals stable. She is answering questions. Denies suicide homicidal ideation. WBC within normal limits. Hemoglobin within normal limits. Establish intravenous access. Was given fluids. Continue monitoring. Images Reviewed?: Images reviewed and evaluated by me Time of 1ST Reevaluation: 15:36 Reevaluation 1ST: Unchanged Patient Education/Counseling: Diagnosis, Treatment Family Education/Counseling: No Family Present Medical Screening: No EMC Exist At This Time SEPSIS Sepsis Screen Physician Orders Troponin-I Hs (12/21/24 14:54) Comprehensive Metabolic Panel (12/21/24 14:54) Urinalysis (12/21/24 14:54) Sodium Chloride 0.9% (12/21/24 15:00) Vital Signs Date Time Temp Pulse Resp B/P (MAP) Pulse Ox O2 Delivery O2 Flow Rate FiO2 12/21/24 15:05 101 12/21/24 14:53 101 12/21/24 14:42 97.6 97 14 112/83 95 97.6 Laboratory Tests Test 12/21/24 15:17 White Blood Count 6.4 10^3/uL (4.4-10.8) Departure 1 Departure Time of Disposition: 15:47 Impression: Primary Impression: Drug overdose Qualified Codes: T50.904A - Poisoning by unspecified drugs, medicaments and biological substances, undetermined, initial encounter Disposition: ADMITTED INPATIENT Admit to: Med Surg Condition: Guarded Critical Care Note Critical Care Time?: No Stability Stability form required: No Heart Score Heart Score: Heart Score Response (Comments) Value History Moderate Suspicious 1 EKG Normal 0 Age >65 2 Risk Factors 1 or 2 risk factors 1 Troponin Normal limit 0 Total 4 I personally scribed for ALIN GRULLON MD ([email or web address]) on 12/21/24 at 15:05. Electronically submitted by Isabella Chavez ([facility]). I personally scribed for ALIN GRULLON MD ([email or web address]) on 12/21/24 at 15:06. Electronically submitted by Isabella Chavez ([facility]). ALIN GRULLON MD Dec 21, 2024 15:05
--- NOTE | 2024-12-21 15:18 | ECG ---
[facility] Test Date: 2024-12-21 Test Time: 14:49:14 Pat Name: PAIGE WAY Department: Room: 0249T Gender: F Manager Online: DARIA : 1955 Requested By: ALIN GRULLON Order Number: [id number] Reading MD: Monster Kwok Measurements Intervals [place] Rate: 101 P: 46 WA: 166 QRS: -12 QRSD: 105 T: 88 QT: 367 QTc: 476 Interpretive Statements Normal sinus rhythm with unifocal PVCs present Probable left atrial enlargement Anteroseptal infarct, age indeterminate Minimal ST elevation, inferior leads Electronically Signed On 12-25-2024 9:32:42 PDT by Monster Kwok Please click the below link to view image of tracing.
[2024-12-21 15:25] LABS: Hematocrit 36.5 % (36.0-46.0); Hemoglobin 12.8 g/dL (12.2-16.2); Mean Corpuscular Hemoglobin 31.8 pg (28.0-32.0); Mean Corpuscular Volume 91.0 fL (80.0-100.0); Nucleated Red Blood Cells % 0.0 %
[2024-12-21 15:30] VITALS: PULSE 114; RESP 19; O2SAT 99
[2024-12-21 15:42] LABS: Albumin 3.7 g/dL (3.2-4.8); Alkaline Phosphatase 65 U/L (46-116); Anion Gap 7 (5-15); BUN/Creatinine Ratio 14.9 (10.0-20.0); Bilirubin, Total 0.6 mg/dL (0.2-1.0); Blood Urea Nitrogen 13 mg/dL (9-23); Calcium 9.4 mg/dL (8.7-10.4); Carbon Dioxide 28 mmol/L (20-31); Glucose 94 mg/dL (74-106); Sodium 142 mmol/L (136-145); Total Protein 5.7 g/dL (5.7-8.2)
[2024-12-21 15:52] LABS: Alanine Aminotransferase < 9 U/L (7-40); Chloride 107 mmol/L (98-107); Potassium 3.1 mmol/L (3.5-5.1)
[2024-12-21] MEDS: SODIUM CHLORIDE 0.9% 1,000 ML IV ONE (18:07)
[2024-12-21] MEDS ORDERED: ACETAMINOPHEN 325 MG TAB PO PRN (20:00)
[2024-12-21] MEDS ORDERED: DOCUSATE SOD 100 MG CAP PO PRN (20:00)
[2024-12-21] MEDS: POTASSIUM CHL 20MEQ/100ML 100 ML IV SCH (20:17)
[2024-12-21] MEDS ORDERED: POTASSIUM CHL 20MEQ/100ML 100 ML IV ONE ×2 (20:18→22:31)
--- NOTE | 2024-12-21 21:44 | DVHHP2 ---
History of Present Illness Reason for Visit: Drug overdose History of Present Illness The patient is a 69-year-old female with past medical history of CVA, depression, hyperlipidemia, seizures, and hypertension who presented to [facility] ED for evaluation of drug overdose. Patient reports she to unknown amount of pills associated with nausea, dizziness, generalized weakness, acting sluggish and slow to responses. Patient is taking Gabapentin, Trazodone, Plavix, [place], and other medications at this time. Patient was seen and evaluated in the ED, laboratory data shows WBC 6.4, platelets 383, sodium 142, potassium 3.1, BUN 13, creatinine 0.87, GFR 71, glucose 94, calcium 9.4, troponin 8, blood pressure 128/71, heart rate 82, temperature 97.7 F, O2 saturation 98% on oxygen. Please see medication orders section in the computer. On my assessment, patient denied chest pain, no palpitations, no headache, no dizziness at this moment, no shortness of breaths, no diarrhea, no nausea, no vomiting, no fever, no chills. Patient was admitted for further evaluation and medical management. Past Medical History CVA, HTN, HLD, Depression, Seizures Past Surgical History Appendectomy, Hysterectomy Family History Reviewed, noncontributory to the management of this case. Past Social History The patient lives at home, denies smoking, alcohol or illicit drugs abuse. Review of Systems Constitutional: Yes: Weakness; No: Fever, Chills, Sweats, Malaise, Other Eyes: No: Pain, Vision change, Conjunctivae inflammation, Eyelid inflammation, Other, Redness ENT: No: Ear pain, Ear discharge, Nose pain, Nose discharge, Nose congestion, Mouth pain, Mouth swelling, Throat pain, Throat swelling, Other Respiratory: No: Cough, Dry, Shortness of breath, SOB with excertion, Wheezing, Hemoptysis, Pleuritic Pain, Sputum, Wheezing, Other Cardiovascular: No: Chest Pain, Palpitations, Orthopnea, Paroxysmal Noc. Dyspnea, Edema, Lt Headedness, Other Gastrointestinal: Nausea; No: Vomiting, Abdominal Pain, Diarrhea, Constipation, Melena, Hematochezia, Other Genitourinary: No Dysuria, No Frequency, No Incontinence, No Hematuria, No Retention, No Other Musculoskeletal: No: other, neck pain, shoulder pain, arm pain, back pain, hand pain, leg pain, foot pain Skin: No: Rash, Lesions, Jaundice, Bruising, Other Neurological: Other (Dizziness); No: Weakness, Numbness, Incoordination, Change in speech, Confusion, Seizures Allergies: Coded Allergies: Cephalexin (Verified Allergy, Unknown, 06/29/21) Penicillins (Verified Allergy, Unknown, 06/27/21) Medications Current Medications Medications Dose Ordered Sig/Buster Route Start Time Stop Time Status Last Admin Dose Admin Alprazolam 1 mg Q8HPRN PRN PO 12/21/24 20:00 Atorvastatin Calcium 40 mg HS PO 12/21/24 22:00 Clopidogrel Bisulfate 75 mg DAILY PO 12/22/24 10:00 Trazodone HCl 50 mg HS PO 12/21/24 22:00 Metoprolol Tartrate 12.5 mg BID PO 12/21/24 22:00 Levetiracetam 100 ml @ 400 mls/hr BID IV 12/21/24 22:00 Potassium Chloride 100 ml @ 50 mls/hr Q2H IV 12/21/24 20:00 12/21/24 23:59 12/21/24 20:17 50 MLS/HR Duloxetine HCl 30 mg DAILY PO 12/22/24 10:00 Gabapentin 300 mg BID PO 12/21/24 22:00 Sodium Chloride 10 ml Q8HR IV 12/21/24 22:00 Acetaminophen/ Hydrocodone Bitart 1 tab Q4HP PRN PO 12/21/24 20:00 Ondansetron HCl 4 mg Q4HP PRN IV 12/21/24 20:00 Docusate Sodium 100 mg BIDPRN PRN PO 12/21/24 20:00 Acetaminophen 650 mg Q6HP PRN PO 12/21/24 20:00 Exam Vital Signs Vital Signs Date Time Temp Pulse Resp B/P (MAP) Pulse Ox O2 Delivery O2 Flow Rate FiO2 12/21/24 19:30 97.7 81 13 128/71 (90) 99 97.7 12/21/24 15:30 Nasal Cannula* 2 28 General Appearance: Alert, Oriented X3, Cooperative, No acute distress HEENT: Atraumatic, PERRLA, EOMI, Mucous membr. moist/pink Respiratory: Normal air movement Cardiovascular: Regular rate, Normal S1, Normal S2, No murmurs Abdominal: Normal bowel sounds, Soft, No tenderness, No hepatospenomegaly, No masses Extremities: No clubbing, No cyanosis, No edema, Normal pulses, No tenderness/s welling Skin: No rashes, No significant lesion Neuro: Normal speech, Normal tone, Sensation intact, Cranial nerves 3-12 NL, Reflexes 2+, Other (Generalized weakness) Psych/Mental Status: Mental status NL, Mood NL Labs/Xrays Labs Test 12/21/24 15:17 Range/Units White Blood Count 6.4 4.4-10.8 10^3/uL Red Blood Count 4.01 4.0-5.20 10^6/uL Hemoglobin 12.8 12.2-16.2 g/dL Hematocrit 36.5 36.0-46.0 % Mean Corpuscular Volume 91.0 80.0-100.0 fL Mean Corpuscular Hemoglobin 31.8 28.0-32.0 pg Mean Corpuscular Hemoglobin Concent 35.0 32.0-36.0 g/dL Red Cell Distribution Width 13.1 11.8-14.3 % Platelet Count 383 140-450 10^3/uL Mean Platelet Volume 7.1 6.9-10.8 fL Neutrophils (%) (Auto) 69.5 37.0-80.0 % Lymphocytes (%) (Auto) 20.9 10.0-50.0 % Monocytes (%) (Auto) 7.7 0.0-12.0 % Eosinophils (%) (Auto) 1.1 0.0-7.0 % Basophils (%) (Auto) 0.8 0.0-2.0 % Neutrophils # (Auto) 4.4 1.6-8.6 10 ^3/uL Lymphocytes # (Auto) 1.3 0.4-5.4 10 ^3/uL Monocytes # (Auto) 0.5 0-1.3 10 ^3/uL Eosinophils # (Auto) 0.1 0-0.8 10 ^3/uL Basophils # (Auto) 0.1 0-0.2 10 ^3/uL Nucleated Red Blood Cells 0.0 % Sodium Level 142 136-145 mmol/L Potassium Level 3.1 L 3.5-5.1 mmol/L Chloride Level 107 98-107 mmol/L Carbon Dioxide Level 28 20-31 mmol/L Anion Gap 7 5-15 Blood Urea Nitrogen 13 9-23 mg/dL Creatinine 0.87 0.550-1.02 mg/dL Glomerular Filtration Rate Calc 71 >90 mL/min BUN/Creatinine Ratio 14.9 10.0-20.0 Serum Glucose 94 74-106 mg/dL Calcium Level 9.4 8.7-10.4 mg/dL Total Bilirubin 0.6 0.2-1.0 mg/dL Aspartate Amino Transferase (AST) 14 13-40 U/L Alanine Aminotransferase (ALT) < 9 7-40 U/L Alkaline Phosphatase 65 46-116 U/L Troponin I High Sensitivity 8 </=34 ng/L Total Protein 5.7 5.7-8.2 g/dL Albumin 3.7 3.2-4.8 g/dL SEPSIS Sepsis Screen Date sepsis recognized/suspect: Dec 21, 2024 Time Sepsis recognized/suspect: 1529 Recent Procedure: No On Antibiotic Therapy: No Respiratory Rate >20: No Heart Rate >90: Yes Temp<36 C (96.8 F) or >38.3 C: No SBP <90 or MAP <65 mmHG: No New Acute Mental Status Change: Yes Is the patient on CPAP, BIPAP,: No Physician Orders Urinalysis (12/21/24 14:54) Alprazolam Tablet (Xanax Tablet) (12/21/24 20:00) Atorvastatin (Lipitor) (12/21/24 22:00) Clopidogrel Bisulfate (Plavix) (12/22/24 10:00) Trazodone Hcl (Desyrel) (12/21/24 22:00) Metoprolol Tartrate Tablet (Lopressor Ta (12/21/24 22:00) Levetiracetam 500 Mg/100ml (Levetiraceta (12/21/24 22:00) Potassium Chl 20meq/100ml (12/21/24 20:00) Duloxetine Hcl Capsule (Cymbalta Capsule (12/22/24 10:00) Gabapentin Capsule (Neurontin Capsule) (12/21/24 22:00) Allergies (12/21/24 19:48) Code Status (12/21/24 19:48) Sodium Chloride Lock (Saline Lock Ns) (12/21/24 22:00) Oxygen Per Hour (12/21/24 19:48) Hydrocodone-Acet 5/325mg Tab ([place]ulloden 5/32 (12/21/24 20:00) Ondansetron Hcl (Zofran) (12/21/24 20:00) Docusate Sodium Capsule (Colace Capsule) (12/21/24 20:00) Complete Blood Count (12/22/24 04:00) Comprehensive Metabolic Panel (12/22/24 04:00) Cardiac Diet-2gna,Lofat,Lochol (12/22/24 Breakfast) Condition: Serious (12/21/24 19:48) Acetaminophen Tablet (Tylenol Tablet) (12/21/24 20:00) Bedrest With Bathroom Privileg (12/21/24 19:48) Maintain Bed Rest (12/21/24 19:48) Sequential Compression Device (12/21/24 ) Vital Signs Date Time Temp Pulse Resp B/P (MAP) Pulse Ox O2 Delivery O2 Flow Rate FiO2 12/21/24 19:30 97.7 81 13 128/71 (90) 99 97.7 12/21/24 19:00 79 14 142/84 (103) 100 12/21/24 17:00 77 17 125/77 (93) 99 12/21/24 15:30 114 19 99 Nasal Cannula* 2 28 12/21/24 15:30 97.7 114 19 138/75 (96) 99 97.7 12/21/24 15:05 101 12/21/24 14:53 101 12/21/24 14:42 97.6 97 14 112/83 95 97.6 Laboratory Tests Test 12/21/24 15:17 White Blood Count 6.4 10^3/uL (4.4-10.8) Medications Medications Dose Ordered Sig/Buster Route Start Time Stop Time Status Last Admin Dose Admin Potassium Chloride 100 ml @ 50 mls/hr Q2H IV 12/21/24 20:00 12/21/24 23:59 12/21/24 20:17 50 MLS/HR Sodium Chloride 1,000 ml @ 1,000 mls/hr Q1H ONCE IV 12/21/24 15:00 12/21/24 15:59 DC 12/21/24 18:07 1,000 MLS/HR Assessment/Plan Assessment/Plan Drug overdose Hypokalemia Generalized weakness Poisoning by unspecified drugs, medicaments and biological substances, undetermined, initial encounter Plan 1. Admit to telemetry unit 2. Breathing treatment 3. Pain control management 4. Management of fluids and electrolytes 5. Consultation for hospitalist 6. Diagnostic tests chest x-ray 7. DVT prophylaxis-on SCDs 8. Repeat labs CBC, CMP in a.m. 9. Continue with current medical management 10. Treatment plan discussed with patient and RN. Patient verbalized understanding. Plan discussed with: Patient, Other (RN) My Orders Orders - CELESTINE BELL DNP Procedure Category Date Status Time Alprazolam Tablet PHA 12/21/24 In Process (Xanax Tablet) 20:00 Atorvastatin (Lipitor) PHA 12/21/24 In Process 22:00 Clopidogrel Bisulfate PHA 12/22/24 In Process (Plavix) 10:00 Trazodone Hcl PHA 12/21/24 In Process (Desyrel) 22:00 Metoprolol Tartrate PHA 12/21/24 In Process Tablet (Lopressor Ta 22:00 Levetiracetam 500 PHA 12/21/24 In Process Mg/100ml (Levetiraceta 22:00 Potassium Chl PHA 12/21/24 In Process 20meq/100ml 20:00 Duloxetine Hcl PHA 12/22/24 In Process Capsule (Cymbalta 10:00 Gabapentin Capsule PHA 12/21/24 In Process (Neurontin Capsule) 22:00 Allergies TISH 12/21/24 In Process 19:48 Code Status CODE 12/21/24 Transmitted 19:48 Sodium Chloride Lock PHA 12/21/24 In Process (Saline Lock Ns) 22:00 Oxygen Per Hour RT 12/21/24 Transmitted 19:48 Hydrocodone-Acet PHA 12/21/24 In Process 5/325mg Tab ([place] 20:00 Ondansetron Hcl PHA 12/21/24 In Process (Zofran) 20:00 Docusate Sodium PHA 12/21/24 In Process Capsule (Colace 20:00 Complete Blood Count LAB 12/22/24 Verified 04:00 Comprehensive LAB 12/22/24 Verified Metabolic Panel 04:00 Cardiac DIET 12/22/24 Transmitted Diet-2gna,Lofat,Lochol Breakfast Condition: Serious TISH 12/21/24 In Process 19:48 Acetaminophen Tablet PHA 12/21/24 In Process (Tylenol Tablet) 20:00 Bedrest With Bathroom TISH 9/13/25 In Process Privileg 19:48 Maintain Bed Rest TISH 12/21/24 In Process 19:48 Sequential TISH 12/21/24 In Process Compression Device Problem List: (1) Drug overdose (2) Hypokalemia (3) Generalized weakness (4) Poisoning by unspecified drugs, medicaments and biological substances, undetermined, initial encounter Date of Service: Dec 21, 2024 Billing Provider: CELESTINE EBLL DNP Common Visit Codes: [id number] INP/OBS CARE (HIGH) CELESTINE BELL DNP Dec 21, 2024 21:44
[2024-12-21] MEDS ORDERED: MORPHINE SULFATE INJ 2 MG/ml SYRG IV PRN (21:45)
[2024-12-21] MEDS ORDERED: NITROGLYCERIN 0.4 MG SL TAB SL PRN (21:45)
[2024-12-21] MEDS ORDERED: METOPROLOL TARTRATE 25 MG TAB ONE (21:56)
[2024-12-21] MEDS ORDERED: ATORVASTATIN 20 MG TAB ONE (21:56)
[2024-12-21] MEDS ORDERED: GABAPENTIN 300 MG CAP ONE (21:57)
[2024-12-21] MEDS: METOPROLOL TARTRATE 25 MG TAB PO SCH (22:00)
[2024-12-21] MEDS: levETIRAcetam 500 mg/100ml 100 ML IV SCH (22:02)
[2024-12-21] MEDS: ATORVASTATIN 20 MG TAB PO SCH (22:02)
[2024-12-21] MEDS: SODIUM CHLOR 0.9% PF (SALINE LOCK) 10ML VIAL/SYR IV SCH (22:02)
[2024-12-21] MEDS: GABAPENTIN 300 MG CAP PO SCH (22:03)
[2024-12-21 23:28] LABS: Urine Protein, UAD Negative (Negative)
[2024-12-21 23:29] VITALS: PULSE 47; RESP 17; O2SAT 98
[2024-12-21 23:35] VITALS: BP 175/97; PULSE 47; RESP 17; TEMP 97.9; O2SAT 98
[2024-12-22 01:00] VITALS: BP 162/88; PULSE 46; RESP 18; TEMP 98.1; O2SAT 98
[2024-12-22] MEDS: HYDROcodone-ACET 5/325MG TAB PO PRN (01:21)
[2024-12-22 02:40] VITALS: BP 156/88; PULSE 47; RESP 16; O2SAT 97
--- NOTE | 2024-12-22 02:41 | DVH ---
CHEST RADIOGRAPH Indication: Shortness of breaths Technique: 1 view Comparison: XY CHEST PORTABLE on DOS: 12/03/24 FINDINGS: Lines and Tubes: External leads. Lungs/Pleura: Decreased infrahilar interstitial prominence. No evidence of acute consolidation or sig nificant pleural abnormality. Cardiomediastinum: Unchanged, upper normal heart size. Other: No acute osseous abnormality. IMPRESSION: 1. Mild heart failure pattern, improved from 12/03/2024.
[2024-12-22 05:00] VITALS: BP 170/87; PULSE 46; RESP 17; TEMP 98; O2SAT 97
--- NOTE | 2024-12-22 06:41 | DVHINCON2 ---
Date of service: Dec 22, [address] Wilhelm Reason for Consultation Bradycardia History of Present Illness This is a 69-year old female known outside to our practice who initially presented with reported drug overdose. Reports indicate the patient had taken an unknown amount of her prescribed medications. Ingested medications are unknown however review of chart mentions patient is known to take Metoprolol Succinate, Gabapentin, Trazodone, Plavix, and [place]. Patient did undergo subsequent tele psych evaluation who reported overdose had been accidental in nature and due to somnolent response post ingestion, EMS had been called by the patients and transported for further medical evaluation. Psych evaluation had further deemed the patient as low-risk harm to self. Throughout course of present admission, patient had reportedly been noted to experience mild bradycardia (asymptomatic) with lowest documented heart rates within the 50's while undergoing management within telemetry which cardiology services were subsequently involved for its evaluation/management. Initial 12-lead electrocardiogram had revealed sinus tachycardia at 101 bpm with evidence for PVC activity. PVCs themselves are LBBB morphology in nature and likely originate from somewhere within the RVOT. Of note, patient does have known history of PVC's and SVT for which she is known to take Metoprolol Succinate 50mg once daily on an outpatient basis. Review of telemetry is found consistent with sinus rhythm/PVC's however no objective evidence for significant bradycardia at this point. Initial potassium level was found to be 3.1 (later improved). TSH level was found normal at 1.39. Chest imaging had revealed mild heart failure pattern. At present patient herself denies any active chest pains, shortness of breath, palpitations, dizziness, syncope, suicidal/homicidal ideations, or any further cardiac related symptoms. Cardiology services were subsequently involved for cardiac aspects of care. Past medical history includes hypertension, seizure disorder, old history of CVA, SVT (history of), PVC's (history of), osteoarthritis, scoliosis, radiculopathy, migraine, hold history of appendectomy and hysterectomy. Echocardiogram of July 09, 2021 revealed normal ejection fraction, mild concentric left ventricle hypertrophy, minimal MVP, trace MR/TR and aortic root of 3.5 cm Echocardiogram of September 22, 2023 revealed mild concentric left ventricular hypertrophy, ejection fraction of 60-65%, aortic root at 3.7 cm and ascending aorta 3.9 cm. Past Medical History Reviewed Past Surgical History Reviewed Family History: Cerebrovascular accident (CVA) G8 MOTHER Allergies: Coded Allergies: Cephalexin (Verified Allergy, Unknown, 06/29/21) Penicillins (Verified Allergy, Unknown, 06/27/21) Home Meds Active Scripts Levetiracetam (Keppra) 1,000 Mg Tab, 1 TAB PO BID, #60 TAB 5 Refills Prov:KANDACE WILHELM MD 04/09/23 Reported Medications Doxycycline Hyclate (Doxycycline Hyclate) 100 Mg Cap, 1 CAP PO BID for 14 Days, #28 09/26/23 Lisinopril (Lisinopril) 2.5 Mg Tab, 1 TAB PO DAILY 09/26/23 Metoprolol Succinate (Metoprolol Succinate Er) 50 Mg Tab, 1 TAB PO DAILY 09/26/23 Duloxetine Hcl (Cymbalta) 30 Mg Cap, 1 TAB PO DAILY 09/26/23 Hydrocodone-Acetaminophen (Hydrocodone/Acetaminophen 7.5-325 mg) 1 Tab Tab, 1 TAB PO QID for SCOLIOSIS 09/22/23 Baclofen (Baclofen) 20 Mg Tab, 10 MG PO TID for SCOLIOSIS, TAB 09/22/23 Clonidine Hydrochloride (Clonidine Hcl) 0.1 Mg Tab, 0.1 MG PO BID for BLOOD PRESSURE, TAB 09/22/23 Aripiprazole (Abilify) 2 Mg Tab, 0.5 MG PO QPM for DEPRESSION, TAB 09/22/23 Ezetimibe (Zetia) 10 Mg Tab, 1 TAB PO DAILY for CHOLESTEROL, #30 TAB 5 Refills 09/22/23 Atorvastatin Calcium (Lipitor) 40 Mg Tab, 1 TAB PO QPM for CHOLESTEROL, #90 TAB 1 Refill 09/22/23 Trazodone Hcl (Trazodone Hcl) 100 Mg Tab, 1 TAB PO BID PRN for FOR INSOMNIA 04/08/23 Gabapentin (Gabapentin) 300 Mg Cap, 300 MG PO TID for MUSCLE PAIN for 30 Days, MG 06/28/21 Clopidogrel Bisulfate (CLOPIDOGREL) 75 Mg Tab, 75 MG PO DAILY for STROKE/BLOOD THINNER for 30 Days, MG 06/28/21 Alprazolam (Alprazolam) 1 Mg Tab, 1 TAB PO BID for ANXIETY, #60 TAB 06/28/21 Current Medications Current Medications Medications (Trade) Dose Ordered Sig/Buster Route PRN Reason Start Time Stop Time Status Last Admin Alprazolam (Xanax Tablet) 1 mg Q8HPRN PRN PO ANXIETY 12/21/24 20:00 Atorvastatin Calcium (Lipitor) 40 mg HS PO 12/21/24 22:00 12/21/24 22:02 Clopidogrel Bisulfate (Plavix) 75 mg DAILY PO 12/22/24 10:00 Trazodone HCl (Desyrel) 50 mg HS PO 12/21/24 22:00 Metoprolol Tartrate (Lopressor Tablet) 12.5 mg BID PO 12/21/24 22:00 Levetiracetam 100 ml @ 400 mls/hr BID IV 12/21/24 22:00 12/21/24 22:02 Potassium Chloride 100 ml @ 50 mls/hr Q2H IV 12/21/24 20:00 12/21/24 23:59 DC 12/21/24 22:29 Duloxetine HCl (Cymbalta Capsule) 30 mg DAILY PO 12/22/24 10:00 Gabapentin (Neurontin Capsule) 300 mg BID PO 12/21/24 22:00 12/21/24 22:03 Sodium Chloride ([place]) 10 ml Q8HR IV 12/21/24 22:00 12/21/24 22:02 Acetaminophen/ Hydrocodone Bitart ([place] 5/325MG Tab) 1 tab Q4HP PRN PO MODERATE PAIN (4-6 PAIN SCALE) 12/21/24 20:00 12/22/24 01:21 Ondansetron HCl (Zofran) 4 mg Q4HP PRN IV NAUSEA / VOMITING 12/21/24 20:00 Docusate Sodium (Colace Capsule) 100 mg BIDPRN PRN PO FOR CONSTIPATION 12/21/24 20:00 Acetaminophen (Tylenol Tablet) 650 mg Q6HP PRN PO PAIN SCALE 1-3 OR TEMP>100.4 12/21/24 20:00 Nitroglycerin (Ntrostat Sublingual) 0.4 mg Q5MINP PRN SL FOR CHEST PAIN 12/21/24 21:45 Morphine Sulfate 2 mg Q30M PRN IV FOR CHEST PAIN 12/21/24 21:45 Review of Systems A 14-point review of systems is negative unless otherwise noted above Vital Signs Vital Signs Date Time Temp Pulse Resp B/P (MAP) Pulse Ox O2 Delivery O2 Flow Rate FiO2 12/22/24 05:00 98.0 46 17 170/87 (114) 97 98.0 12/21/24 23:29 Room Air* 0 21 Physical Exam Heart: S1 and S2 regular. The patient is in sinus rhythm. Lungs: clear to auscultation Abdomen: Benign. Extremities: Distal pulses palpable, 2+. No evidence for peripheral edema Labs/Diagnostic Data Labs Test 12/21/24 23:00 12/21/24 15:17 Range/Units Urine Color Light-yellow Yellow Urine Clarity Clear Clear Urine pH 6.5 5.0-9.0 Urine Specific [place] 1.011 1.001-1.035 Urine Protein Negative Negative Urine Ketones Negative Negative Urine Blood Negative Negative /uL Urine Nitrite Negative Negative Urine Bilirubin Negative Negative Urine Urobilinogen Normal Negative mg/dL Urine Leukocyte Esterase Negative Negative /uL Urine RBC 1 0 - 4 /hpf Urine Microscopic WBC 1 0-5 /HPF Urine Squamous Epithelial Cells Few <5 /hpf Urine Bacteria None seen None Seen /hpf Urine Glucose Normal Normal mg/dL White Blood Count 6.4 4.4-10.8 10^3/uL Red Blood Count 4.01 4.0-5.20 10^6/uL Hemoglobin 12.8 12.2-16.2 g/dL Hematocrit 36.5 36.0-46.0 % Mean Corpuscular Volume 91.0 80.0-100.0 fL Mean Corpuscular Hemoglobin 31.8 28.0-32.0 pg Mean Corpuscular Hemoglobin Concent 35.0 32.0-36.0 g/dL Red Cell Distribution Width 13.1 11.8-14.3 % Platelet Count 383 140-450 10^3/uL Mean Platelet Volume 7.1 6.9-10.8 fL Neutrophils (%) (Auto) 69.5 37.0-80.0 % Lymphocytes (%) (Auto) 20.9 10.0-50.0 % Monocytes (%) (Auto) 7.7 0.0-12.0 % Eosinophils (%) (Auto) 1.1 0.0-7.0 % Basophils (%) (Auto) 0.8 0.0-2.0 % Neutrophils # (Auto) 4.4 1.6-8.6 10 ^3/uL Lymphocytes # (Auto) 1.3 0.4-5.4 10 ^3/uL Monocytes # (Auto) 0.5 0-1.3 10 ^3/uL Eosinophils # (Auto) 0.1 0-0.8 10 ^3/uL Basophils # (Auto) 0.1 0-0.2 10 ^3/uL Nucleated Red Blood Cells 0.0 % Sodium Level 142 136-145 mmol/L Potassium Level 3.1 L 3.5-5.1 mmol/L Chloride Level 107 98-107 mmol/L Carbon Dioxide Level 28 20-31 mmol/L Anion Gap 7 5-15 Blood Urea Nitrogen 13 9-23 mg/dL Creatinine 0.87 0.550-1.02 mg/dL Glomerular Filtration Rate Calc 71 >90 mL/min BUN/Creatinine Ratio 14.9 10.0-20.0 Serum Glucose 94 74-106 mg/dL Calcium Level 9.4 8.7-10.4 mg/dL Total Bilirubin 0.6 0.2-1.0 mg/dL Aspartate Amino Transferase (AST) 14 13-40 U/L Alanine Aminotransferase (ALT) < 9 7-40 U/L Alkaline Phosphatase 65 46-116 U/L Troponin I High Sensitivity 8 </=34 ng/L Total Protein 5.7 5.7-8.2 g/dL Albumin 3.7 3.2-4.8 g/dL Plan/Recommendation ASSESSMENT: This is a 69-year old female known outside to our practice who initially presented with reported drug overdose. Reports indicate the patient had taken an unknown amount of her prescribed medications. Ingested medications are unknown however review of chart mentions patient is known to take Metoprolol Succinate, Gabapentin, Trazodone, Plavix, and [place]. Patient did undergo subsequent tele psych evaluation who reported overdose had been accidental in nature and due to somnolent response post ingestion, EMS had been called by the patients and transported for further medical evaluation. Psych evaluation had further deemed the patient as low-risk harm to self. Throughout course of present admission, patient had reportedly been noted to experience mild bradycardia (asymptomatic) with lowest documented heart rates within the 50's while undergoing management within telemetry which cardiology services were s ubsequently involved for its evaluation/management. Initial 12-lead electrocardiogram had revealed sinus tachycardia at 101 bpm with evidence for PVC activity. PVCs themselves are LBBB morphology in nature and likely originate from somewhere within the RVOT. Of note, patient does have known history of PVC's and SVT for which she is known to take Metoprolol Succinate 50mg once daily on an outpatient basis. Review of telemetry is found consistent with sinus rhythm/PVC's however no objective evidence for significant bradycardia at this point. Initial potassium level was found to be 3.1 (later improved). TSH level was found normal at 1.39. Chest imaging had revealed mild heart failure pattern. At present patient herself denies any active chest pains, shortness of breath, palpitations, dizziness, syncope, suicidal/homicidal ideations, or any further cardiac related symptoms. Cardiology services were subsequently involved for cardiac aspects of care. Past medical history includes hypertension, seizure disorder, old history of CVA, SVT (history of), PVC's (history of), osteoarthritis, scoliosis, radiculopathy, migraine, hold history of appendectomy and hysterectomy. Echocardiogram of July 09, 2021 revealed normal ejection fraction, mild concentric left ventricle hypertrophy, minimal MVP, trace MR/TR and aortic root of 3.5 cm Echocardiogram of September 22, 2023 revealed mild concentric left ventricular hypertrophy, ejection fraction of 60-65%, aortic root at 3.7 cm and ascending aorta 3.9 cm. Drug overdose, unintentional Reported bradycardia, asymptomatic Evidence for PVC's, LBBB morphology Supraventricular tachycardia, history of Cerebral vascular accident, history of Seizure disorder, previous history of Hypertensive urgency, improved Hyperlipidemia Hypokalemia CARDIAC SUGGESTIONS FOR MANAGEMENT: Presented and had reportedly been found to experience mild bradycardia with lowest documented heart rates within the 50's however at this point there has been no objective evidence (rhythm stips/EKG findings) to support reported findings. Of note, patient does have known history of PVC's which 12-lead EKG upon arrival had revealed evidence for PVC activity and as there had been reported bradycardia with no objective evidence confirming bradycardia, reported bradycardia is less likely and considered to reflect PVC activity as PVC themselves are not accounted for when obtaining vital signs via pulse oximetry. Therefore, recommendation at this point is to resume home beta-linda therapy (Metoprolol Succinate 50mg once daily) in an attempt reduce frequency of underlying PVC's. Recommend obtaining pulse rate by auscu ltation/palpitations/telemetry rather pulse oximetry for accuracy. To proceed with close rate and rhythm surveillance during the interim. To sustain potassium levels greater than 4.0. To sustain magnesium levels greater than 2.0. Further out-patient based event monitoring can be justified/arranged. Will request for 2-D Echocardiogram and proBNP level recognizing findings on chest imaging. Proceed with IV Hydralazine as needed for hemodynamic control. Consider request for urine drug screen. Seizure precautions are advised. Management of ongoing concurrent medical conditions as per primary team. Will proceed to follow from a cardiac perspective. Request for proBNP level Request for 2-D Echocardiogram Consider request for urine drug screen Metoprolol Succinate 50mg once daily (for now) IV Hydralazine as needed for hemodynamic control Out-patient event monitoring can be justified/arranged To proceed with close rate/rhythm surveillance during interim Evaluation/Management of concurrent conditions as per primary team Atorvastatin 40mg once daily for hyperlipidemia Proceed with close hemodynamic surveillance Proceed with optimized blood pressure control Transfuse to sustain HGB level above 7.0 Sustain Magnesium level greater than 2.0 Sustain Potassium level greater than 4.0 Follow up renal function and electrolytes Seizure precautions are advised Management in telemetry Follow up clinical documentation consultant recommendations Will proceed to follow from a cardiac perspective Further recommendations per clinical progression All available diagnostic labs, EKG's, and images were personally reviewed Patient's status, findings, and plan of care was reviewed and discussed with supervising physician Dr. Mckenzie, who is in agreement with current plan of care. Plan of care discussed with and agreed upon by patient / primary RN Prognosis: Guarded Thank you for allowing me to participate in the care of this patient. Further recommendations based on patients clinical course and progression, primary attending, and other consultants. Will continue to follow with primary attending. If you have any questions or concerns, please do not hesitate to contact me. A total of 75 minutes was spent reviewing the patient record, examining the patient, making a diagnostic and therapeutic plan, discussing this plan with medical personnel, following up on diagnostic studies and following the patient for clinical stability excluding any and all procedures. At least 50% of this time was spent in direct, [id number] contact. Plan discussed with: Patient (patient and primary rn ) FARHEENJACE Shun BUCKLEY Dec 22, 2024 06:41
[2024-12-22 07:15] LABS: Hematocrit 38.7 % (36.0-46.0); Hemoglobin 13.3 g/dL (12.2-16.2); Mean Corpuscular Hemoglobin 31.7 pg (28.0-32.0); Mean Corpuscular Volume 92.5 fL (80.0-100.0); Nucleated Red Blood Cells % 0.1 %
[2024-12-22 07:42] LABS: Albumin 3.9 g/dL (3.2-4.8); Alkaline Phosphatase 65 U/L (46-116); Anion Gap 8 (5-15); BUN/Creatinine Ratio 11.0 (10.0-20.0); Bilirubin, Total 0.7 mg/dL (0.2-1.0); Calcium 9.3 mg/dL (8.7-10.4); Carbon Dioxide 27 mmol/L (20-31); Glucose 82 mg/dL (74-106); Sodium 143 mmol/L (136-145); Total Protein 6.3 g/dL (5.7-8.2)
[2024-12-22 07:48] LABS: Alanine Aminotransferase < 9 U/L (7-40); Blood Urea Nitrogen 8 mg/dL (9-23); Chloride 108 mmol/L (98-107); Potassium 3.4 mmol/L (3.5-5.1)
[2024-12-22 09:00] VITALS: BP 162/82; PULSE 64; RESP 18; TEMP 97.4; O2SAT 98
[2024-12-22] MEDS ORDERED: hydrALAZINE HCL 20 MG/ML VL IV PRN (09:00)
[2024-12-22] MEDS: CLOPIDOGREL BISULFATE 75 MG TAB PO SCH (09:36)
[2024-12-22] MEDS: ONDANSETRON HCL 4 MG/2 ML VIAL IV PRN (09:57)
[2024-12-22] MEDS: ALPRAZolam 0.5 MG TAB PO PRN (10:02)
[2024-12-22 13:00] VITALS: BP 138/84; PULSE 70; RESP 18; TEMP 97.8; O2SAT 99
--- NOTE | 2024-12-22 13:57 | DVHPN2 ---
Reviewed: Care Plan, H&P, Labs, Medications, Previous Orders, Radiology Changes from previous H/P or p: No Changes Eyes: No Pain, No Vision change, No Conjunctivae inflammation, No Eyelid inflammation, No Other, No Redness ENT: No Ear pain, No Ear discharge, No Nose pain, No Nose discharge, No Nose congestion, No Mouth pain, No Mouth swelling, No Throat pain, No Throat swelling, No Other Cardiovascular: No Chest Pain, No Palpitations, No Orthopnea, No Paroxysmal Noc. Dyspnea, No Edema, No Lt Headedness, No Other Respiratory: No Cough, No Dry, No Shortness of breath, No SOB with excertion, No Wheezing, No Hemoptysis, No Pleuritic Pain, No Sputum, No Other Gastrointestinal: Nausea; No Vomiting, No Abdominal Pain, No Diarrhea, No Constipation, No Melena, No Hematochezia, No Other Genitourinary: No Dysuria, No Frequency, No Incontinence, No Hematuria, No Retention, No Other Musculoskeletal: No other, No neck pain, No shoulder pain, No arm pain, No back pain, No hand pain, No leg pain, No foot pain Skin: No Rash, No Lesions, No Jaundice, No Bruising, No Other Objective Vitals Vital Signs Date Time Temp Pulse Resp B/P (MAP) Pulse Ox O2 Delivery O2 Flow Rate FiO2 12/22/24 13:00 97.8 70 18 138/84 (102) 99 97.8 12/22/24 08:00 Room Air* 0 21 Intake/Output Intake and Output 12/22/24 07:00 Intake Total 1940 ml Balance 1940 ml Intake Oral 840 ml IV Total 1100 ml # Voids 4 Medications Current Medications Medications Dose Ordered Sig/Buster Route Start Time Stop Time Status Last Admin Dose Admin Alprazolam 1 mg Q8HPRN PRN PO 12/21/24 20:00 12/22/24 10:02 1 MG Atorvastatin Calcium 40 mg HS PO 12/21/24 22:00 12/21/24 22:02 40 MG Clopidogrel Bisulfate 75 mg DAILY PO 12/22/24 10:00 12/22/24 09:36 75 MG Trazodone HCl 50 mg HS PO 12/21/24 22:00 Metoprolol Tartrate 12.5 mg BID PO 12/21/24 22:00 12/22/24 09:37 12.5 MG Levetiracetam 100 ml @ 400 mls/hr BID IV 12/21/24 22:00 12/22/24 09:40 400 MLS/HR Duloxetine HCl 30 mg DAILY PO 12/22/24 10:00 12/22/24 09:36 30 MG Gabapentin 300 mg BID PO 12/21/24 22:00 12/22/24 09:36 300 MG Sodium Chloride 10 ml Q8HR IV 12/21/24 22:00 12/22/24 09:41 10 ML Acetaminophen/ Hydrocodone Bitart 1 tab Q4HP PRN PO 12/21/24 20:00 12/22/24 13:14 1 TAB Ondansetron HCl 4 mg Q4HP PRN IV 12/21/24 20:00 12/22/24 09:57 4 MG Docusate Sodium 100 mg BIDPRN PRN PO 12/21/24 20:00 Acetaminophen 650 mg Q6HP PRN PO 12/21/24 20:00 Nitroglycerin 0.4 mg Q5MINP PRN SL 12/21/24 21:45 Morphine Sulfate 2 mg Q30M PRN IV 12/21/24 21:45 Hydralazine HCl 10 mg Q6HP PRN IV 12/22/24 09:00 Laboratory Results Laboratory Tests 12/22/24 05:49 Chemistry Test 12/21/24 15:17 12/22/24 05:49 Albumin 3.7 g/dL (3.2-4.8) 3.9 g/dL (3.2-4.8) Calcium Level 9.4 mg/dL (8.7-10.4) 9.3 mg/dL (8.7-10.4) Total Protein 5.7 g/dL (5.7-8.2) 6.3 g/dL (5.7-8.2) LFT Test 12/21/24 15:17 12/22/24 05:49 Alanine Aminotransferase (ALT) < 9 U/L (7-40) < 9 U/L (7-40) Alkaline Phosphatase 65 U/L (46-116) 65 U/L (46-116) Aspartate Amino Transferase (AST) 14 U/L (13-40) 16 U/L (13-40) Total Bilirubin 0.6 mg/dL (0.2-1.0) 0.7 mg/dL (0.2-1.0) HgA1c, TSH Test 12/22/24 05:49 Thyroid Stimulating Hormone (TSH) 1.39 uIU/mL (0.55-4.78) Urinalysis Test 12/21/24 23:00 Urine Color Light-yellow (Yellow) Urine Clarity Clear (Clear) Urine pH 6.5 (5.0-9.0) Urine Specific [place] 1.011 (1.001-1.035) Urine Protein Negative (Negative) Urine Ketones Negative (Negative) Urine Blood Negative /uL (Negative) Urine Nitrite Negative (Negative) Urine Bilirubin Negative (Negative) Urine Urobilinogen Normal mg/dL (Negative) Urine Leukocyte Esterase Negative /uL (Negative) Urine RBC 1 /hpf (0 - 4) Urine Microscopic WBC 1 /HPF (0-5) Urine Squamous Epithelial Cells Few /hpf (<5) Urine Bacteria None seen /hpf (None Seen) Urine Glucose Normal mg/dL (Normal) Labs and/or images reviewed: Labs reviewed by me, Image(s) reviewed by me Assessment/Plan Assessment/Plan Drug overdose unknown dose,unknown substance, feeling better stable vital signs, denies any suicidal ideation Hypokalemia Generalized weakness Seizures Hypertension Home Medications include Trazodone Gabapentin Cymbalta metoprolol lisinopril Tele Psych consult for overdose check Urine drug screen Time Spent 70 minutes Advanced care planning time 20 minutes Patient is full code Plan discussed with: Patient My Orders Orders - KANDACE WILHELM MD Procedure Category Date Status Time Drug Screen LAB 12/22/24 Transmitted 13:52 Date of Service: Dec 22, 2024 Billing Provider: KANDACE WILHELM MD Common Visit Codes: 69325-[facility] 30-74 MIN KANDACE WILHELM MD Dec 22, 2024 13:57
[2024-12-22] MEDS: SODIUM CHLORIDE 0.9% 1,000 ML IV SCH (15:00)
[2024-12-22 17:00] VITALS: BP 147/90; PULSE 79; RESP 18; TEMP 98.3; O2SAT 92
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
[2024-12-22 21:48] LABS: Amphetamine Screen, Urine Neg (NEGATIVE); Barbiturate Scree,Urine Neg (NEGATIVE); Benzodiazephine Screen, Urine Pos (NEGATIVE); Cannabinoid Screen, Urine Neg (NEGATIVE); Cocaine Screen, Urine Neg (NEGATIVE); Opiate Scree,Urine Pos (NEGATIVE); Phencyclidine Screen, Urine Neg (NEGATIVE)
--- NOTE | 2024-12-23 08:28 | DVHDS2 ---
Discharge Summary Date of Admission Dec 21, 2024 at 21:43 Date of Discharge: Dec 22, 2024 Admitting Diagnosis Overdose on unknown medication Wounds: None Labs/Diagnostic Data: Laboratory Results Test 12/22/24 05:49 12/21/24 23:00 12/21/24 15:17 12/21/24 11:05 White Blood Count 5.5 10^3/uL (4.4-10.8) Red Blood Count 4.19 10^6/uL (4.0-5.20) Hemoglobin 13.3 g/dL (12.2-16.2) Hematocrit 38.7 % (36.0-46.0) Mean Corpuscular Volume 92.5 fL (80.0-100.0) Mean Corpuscular Hemoglobin 31.7 pg (28.0-32.0) Mean Corpuscular Hemoglobin Concent 34.3 g/dL (32.0-36.0) Red Cell Distribution Width 13.0 % (11.8-14.3) Platelet Count 398 10^3/uL (140-450) Mean Platelet Volume 7.4 fL (6.9-10.8) Neutrophils (%) (Auto) 65.5 % (37.0-80.0) Lymphocytes (%) (Auto) 23.0 % (10.0-50.0) Monocytes (%) (Auto) 9.0 % (0.0-12.0) Eosinophils (%) (Auto) 1.4 % (0.0-7.0) Basophils (%) (Auto) 1.1 % (0.0-2.0) Neutrophils # (Auto) 3.6 10 ^3/uL (1.6-8.6) Lymphocytes # (Auto) 1.3 10 ^3/uL (0.4-5.4) Monocytes # (Auto) 0.5 10 ^3/uL (0-1.3) Eosinophils # (Auto) 0.1 10 ^3/uL (0-0.8) Basophils # (Auto) 0.1 10 ^3/uL (0-0.2) Nucleated Red Blood Cells 0.1 % Sodium Level 143 mmol/L (136-145) Potassium Level 3.4 mmol/L (3.5-5.1) Chloride Level 108 mmol/L (98-107) Carbon Dioxide Level 27 mmol/L (20-31) Anion Gap 8 (5-15) Blood Urea Nitrogen 8 mg/dL (9-23) Creatinine 0.73 mg/dL (0.550-1.02) Glomerular Filtration Rate Calc 88 mL/min (>90) BUN/Creatinine Ratio 11.0 (10.0-20.0) Serum Glucose 82 mg/dL (74-106) Calcium Level 9.3 mg/dL (8.7-10.4) Total Bilirubin 0.7 mg/dL (0.2-1.0) Aspartate Amino Transferase (AST) 16 U/L (13-40) Alanine Aminotransferase (ALT) < 9 U/L (7-40) Alkaline Phosphatase 65 U/L (46-116) Total Protein 6.3 g/dL (5.7-8.2) Albumin 3.9 g/dL (3.2-4.8) Thyroid Stimulating Hormone (TSH) 1.39 uIU/mL (0.55-4.78) Urine Color Light-yellow (Yellow) Urine Clarity Clear (Clear) Urine pH 6.5 (5.0-9.0) Urine Specific [place] 1.011 (1.001-1.035) Urine Protein Negative (Negative) Urine Ketones Negative (Negative) Urine Blood Negative /uL (Negative) Urine Nitrite Negative (Negative) Urine Bilirubin Negative (Negative) Urine Urobilinogen Normal mg/dL (Negative) Urine Leukocyte Esterase Negative /uL (Negative) Urine RBC 1 /hpf (0 - 4) Urine Microscopic WBC 1 /HPF (0-5) Urine Squamous Epithelial Cells Few /hpf (<5) Urine Bacteria None seen /hpf (None Seen) Urine Glucose Normal mg/dL (Normal) Troponin I High Sensitivity 8 ng/L (</=34) Urine Opiates Screen Pos (NEGATIVE) Urine Fentanyl Screen Neg (NEGATIVE) Urine Barbiturates Screen Neg (NEGATIVE) Urine Phencyclidine Screen Neg (NEGATIVE) Urine Amphetamines Screen Neg (NEGATIVE) Urine Benzodiazepines Screen Pos (NEGATIVE) Urine Cocaine Screen Neg (NEGATIVE) Urine Cannabinoids Screen Neg (NEGATIVE) Other Laboratory Tests 12/22/24 05:49 Brief Hx & Hospital Course: 69-year-old female with a chronic back pain admitted for overdose on unknown medication. It appears patient overdosed on prescription medications accidentally all labs were normal the patient is alert and awake oriented x3 patient had a tele psych consult by Dr. Beyer who recommended Remeron and avoid late-night Xanax and start taking lithium and magnesium and cranberry pills. Prior to proper discharge patient decided to leave AMA and left AMA. Condition satisfactory at the time of leaving AMA Consults/Reason for consult Tele psych Dr. Beyer Operations or Procedures None Condition at Discharge: Fair Final Diagnosis/Problems List Overdose on unknown dose of unknown prescription meds Discharge Disposition: AMA Discharge Instruct/Medications Diet comment: Not applicable Patient left AMA Activity comment: Not applicable Patient left AMA Follow Up/Referral: Not applicable Patient left AMA Medications: Not applicable Patient left AMA Scheduled Alprazolam (Alprazolam), 1 TAB PO BID, (Reported) Aripiprazole (Abilify), 0.5 MG PO QPM, (Reported) Atorvastatin Calcium (Lipitor), 1 TAB PO QPM, (Reported) Baclofen (Baclofen), 10 MG PO TID, (Reported) Clonidine Hydrochloride (Clonidine Hcl), 0.1 MG PO BID, (Reported) Clopidogrel Bisulfate (Clopidogrel), 75 MG PO DAILY, (Reported) Doxycycline Hyclate (Doxycycline Hyclate), 1 CAP PO BID, (Reported) Duloxetine Hcl (Cymbalta), 1 TAB PO DAILY, (Reported) Ezetimibe (Zetia), 1 TAB PO DAILY, (Reported) Gabapentin (Gabapentin), 300 MG PO TID, (Reported) Hydrocodone-Acetaminophen (Hydrocodone/Acetaminophen 7.5-325 mg), 1 TAB PO QID, (Reported) Levetiracetam (Keppra), 1 TAB PO BID Lisinopril (Lisinopril), 1 TAB PO DAILY, (Reported) Metoprolol Succinate (Metoprolol Succinate Er), 1 TAB PO DAILY, (Reported) Scheduled PRN Trazodone Hcl (Trazodone Hcl), 1 TAB PO BID PRN for FOR INSOMNIA, (Reported) 35 (Time taken for discharge summary 35 minutes) Discharge Statement: "Patient was advised to return to the ER or call 911 if any headaches, dizziness, shortness of breath, chest pain, abdominal pain, bleeding, fevers, or worsening of medical condition. Patient was counseled about treatment plan, medications, possible side effects, patientverbalized understanding. All questions were answered to the best of my ability. This discharge took greater then 30 minutes in planning, reviewing documentation, counseling the patient, and discussing with other team members." ASSESSMENT ASSESSMENT Assessment Date of Service: Dec 23, 2024 Billing Provider: KANDACE WILHELM MD Common Visit Codes: 99460-XEE/OBS DISCH DAY >30min KANDACE WILHELM MD Dec 23, 2024 08:28
[2024-12-23] MEDS ORDERED: METOPROLOL SUCCINATE XL 50 MG TAB PO SCH (10:00)
--- NOTE | 2024-12-23 16:40 | DVHSR ---
APPROVED REPORT EXAM: Two-dimensional and M-mode echocardiogram with Doppler and color Doppler. Blood Pressure: 162/82 mmHg INDICATION Examine heart function RISK FACTORS Height: 162, Weight: 82 DIMENSIONS LVDd3.9 (3.8-5.7cm)LA (2D)3.5 (1.9-4.0cm)Aortic Root3.6 (2.0-3.7cm) LVDs2.8 (2.5-4.0cm)LA (MM) (1.9-4.0cm)Aortic Cusp Exc1.8 (1.5-2.0cm) EF (%) 50.0 (55-70%)Rt. Atrium4.1 (1.9-4.0cm)Asc. Aorta3.6 cm IVSd1.2 (0.7-1.1cm)RV (D) (1.8-2.4cm) PWd1.1 (0.7-1.1cm) Mitral Valve MitralMitral Stenosis E wave0.48m/sMV Mean GR.mmHg A wave0.62m/sMV Peak GR.mmHg E/A ratio0.82D MVAcm2 DECEL [id number] 1/2 Timems Aortic Valve Aortic ValveAortic Stenosis V10.63m/Cris Mean GR.3mmHg V21.19m/Cris Peak GR.6mmHg LVOT Diameter2.2 (1.8-2.4cm)Doppler AVA2.01cm2 Pulmonic Valve V20.63m/s Other Information Technically limited study due to body habitus. Conclusion Left ventricle: Left ventricle is normal-sized. LVEF was around 55-60%. There was no gross wall mo tion abnormality. Right ventricle was normal-sized with normal systolic function. Both atria were mildly dilated. Aortic valve: Aortic valve was trileaflet. There was no aortic insufficiency/stenosis. There was no mitral/tricuspid regurgitation. Pulmonary valve was not well visualized. As there was no good tricuspid regurgitation jet, right ventricular systolic pressure could not be es timated. There was trace pericardial effusion.
== END 2024-12-22 20:30 | disposition left against medical advice (07) | DRG 918 ==
LOC: ER 14:37 → EDBD 14:37 → OVERFLOW 21:43 → TELE-EAST 23:25
PROVIDERS: ADMIT Nurse Practitioner Family; ATTEND Nurse Practitioner Family
DX: T50.991A Poisoning by other drugs, medicaments and biological substances, accidental (unintentional), initial encounter (principal); E87.6 Hypokalemia; G40.909 Epilepsy, unspecified, not intractable, without status epilepticus; Z53.29 Procedure and treatment not carried out because of patient's decision for other reasons; E78.5 Hyperlipidemia, unspecified; I16.0 Hypertensive urgency; I44.7 Left bundle-branch block, unspecified; F32.A Depression, unspecified; G89.29 Other chronic pain; I11.0 Hypertensive heart disease with heart failure; I50.9 Heart failure, unspecified; Z86.73 Personal history of transient ischemic attack (TIA), and cerebral infarction without residual deficits; Z88.0 Allergy status to penicillin; Z88.1 Allergy status to other antibiotic agents; Z90.49 Acquired absence of other specified parts of digestive tract; Z90.710 Acquired absence of both cervix and uterus; Z82.3 Family history of stroke; Y92.89 Other specified places as the place of occurrence of the external cause
CPT/HCPCS: 36415; 71045; 80053; 80307; 81001; 84439; 84443; 84484; 85025; 93005; 93306; 96360; G0378; J2405; J3480